=== PATIENT | male | born 1945 | race Two or more races ===

== ENCOUNTER 2024-02-10 22:35 | Emergency (ER) | payer MEDICARE, MEDICAID, SELFPAY ==
[2024-02-10 22:37] VITALS: BMI 19.6
[2024-02-10 23:51] VITALS: BP 129/68; PULSE 63; RESP 16; TEMP 36.7; O2SAT 100
--- NOTE | 2024-02-10 23:55 | PD.EDRME ---
Rapid Medical Screening Exam RME Arrival date/time: 02/10/24 22:35 78-year-old male with past medical historyhypertension, diabetes mellitus type II, GERD, peptic ulcer disease, and Parkinson presents emergency department complaining of left lower quadrant pain that started 4 hours ago. Chief Complaint: Abdominal Pain Vital signs: Vital Signs Temperature 98.1 F 02/10/24 23:51 Pulse Rate 63 02/10/24 23:51 Respiratory Rate 16 02/10/24 23:51 Blood Pressure 129/68 02/10/24 23:51 Pulse Oximetry (%) 100 02/10/24 23:51 Oxygen Delivery Method Room Air 02/10/24 23:51 Vital signs reviewed by provider: Yes
[2024-02-11 00:33] LABS: Basophils # (Auto) 0.1 Thou/mm3 (0.0-0.2); Basophils % (Auto) 1 % (0-2.5); Eosinophils # (Auto) 0.2 Thou/mm3 (0.0-0.5); Eosinophils % (Auto) 2 % (0-10); Hematocrit 30.7 % (41.0-53.0); Hemoglobin 10.3 g/dL (13.5-16.0); Immature Granulocytes % (Auto) 0 % (0-0); Immature Granulocytes Auto 0.02 Thou/mm3 (0.00-0.00); Lymphocytes # (Auto) 1.5 Thou/mm3 (1.0-4.8); Lymphocytes % (Auto) 16 % (10-50); Mean Corpuscular HGB Conc 33.6 g/dl (31.0-37.0); Mean Corpuscular Hemoglobin 29.9 pg (25.0-35.0); Mean Corpuscular Volume 89 fL (80-100); Monocytes # (Auto) 0.5 Thou/mm3 (0.0-0.8); Monocytes % (Auto) 5 % (0-12); Neutrophils % (Auto) 76 % (37-80); Nucleated Red Blood Cell % 0 /100 WBC (0); Platelet Count 306 Thou/mm3 (140-440); RDW Standard Deviation 50.6 fL (35.1-43.9); Red Blood Count 3.45 Miln/mm3 (4.50-5.90); White Blood Count 9.2 Thou/mm3 (3.8-10.6)
[2024-02-11 00:55] LABS: Collection Type, Urine Clean Catch
[2024-02-11 01:11] LABS: Bilirubin,Urine Negative (Negative); Blood,Urine Trace (Negative); Clarity,Urine Clear (Clear/Hazy); Color,Urine Lt-Yellow (Lt Yel-Yel); Culture Indicated,Urine Not Indicated; Glucose, Urine 4+ (Negative); Ketones,Urine Negative (Negative); Leukocyte Esterase,Urine Negative (Negative); Nitrite,Urine Negative (Negative); PH,Urine 5.5 (5.0-7.0); Protein,Urine Trace (Neg - Trace); RBC,Urine 3 /hpf (0-3); Specific Gravity,Urine 1.026 (1.001-1.035); Squamous Epithelial Cell,Urine < 1 /hpf (0-5); Urobilinogen,Urine Negative mg/dL (0.0-1.0); WBC,Urine < 1 /hpf (0-5)
[2024-02-11 01:31] LABS: Alanine Aminotransferase < 7 U/L (10-49); Albumin, Serum 4.4 gm/dL (3.4-4.8); Albumin/Globulin Ratio 1.5 (1.2-2.2); Alkaline Phosphatase 56 U/L (46-116); Anion Gap 5 (7-16); Aspartate Amino Transferase 14 U/L (0-34); BUN/Creatinine Ratio 28 Ratio (12-20); Bilirubin,Total 0.3 mg/dL (0.3-1.2); Blood Urea Nitrogen 33 mg/dL (9-23); Calcium 10.5 mg/dL (8.3-10.6); Calcium (Corrected) 10.5 mg/dL (8.5-10.1); Carbon Dioxide 29.8 mMol/L (20.0-31.0); Chloride 101 mMol/L (98-107); Creatinine (Component) 1.2 mg/dL (0.6-1.3); Estimated Creatinine Clearance 45.7 mL/min (>60); Globulin 2.9 gm/dL (2.3-3.5); Glucose 209 mg/dL (74-106); Lipase 53 U/L (12-53); Osmolality,Calculated 285 (275-295); Potassium 3.8 mMol/L (3.4-5.1); Sodium 136 mMol/L (136-145); Total Protein 7.3 gm/dL (5.7-8.2); eGFR > 60 See Note
[2024-02-11 04:01] VITALS: BP 153/74; PULSE 75; RESP 16; TEMP 36.8; O2SAT 98
--- NOTE | 2024-02-11 04:16 | EDNOTE_ITS ---
ED Abdominal Pain RME/HPI General Chief Complaint: Abdominal Pain Stated complaint: LEFT LOWER ABD/HERNIA PAIN Arrival date/time: 02/10/24 22:35 Source: patient Mode of arrival: ambulatory Limitations: no limitations RME / HPI RME / HPI narrative: 02/10/24 22:35 78-year-old male with past medical history hypertension, diabetes mellitus type II, GERD, peptic ulcer disease, and Parkinson presents emergency department complaining of left lower quadrant pain that started [address] Lafleur?s Main ED Evaluation: 78-year-old male who suffers from chronic constipation and a recurrent left hernia who presents to the emergency department for left inguinal pain, and swelling consistent with his hernia. He currently has diarrhea as he?s been taking the Golytely for his chronic constipation. He denies recent cough. He denies any fevers, chills, or sweats. Related Data Home Medications ?Medication ?Instructions ?Recorded ?Confirmed ferrous sulfate 325 mg (65 mg 325 mg PO BID 01/19/19 12/22/23 iron) tablet carbidopa 25 mg-levodopa 100 mg 1 tab PO TID 01/05/22 12/22/23 tablet cyclobenzaprine 10 mg tablet 10 mg PO BID 01/05/22 12/22/23 gabapentin 100 mg capsule 100 mg PO QDAY 01/05/22 12/22/23 lisinopril 20 mg tablet 20 mg PO QDAY 01/05/22 12/22/23 metformin 1,000 mg tablet 1,000 mg PO BID 01/05/22 12/22/23 metoprolol tartrate 50 mg tablet 50 mg PO BIDWM 01/05/22 12/22/23 sucralfate 1 gram tablet 1 g PO BID 01/05/22 12/22/23 tamsulosin 0.4 mg capsule 0.4 mg PO QDAY 01/05/22 12/22/23 trihexyphenidyl 2 mg tablet 2 mg PO TID 01/05/22 12/22/23 Previous Rx's ?Medication ?Instructions ?Recorded apixaban 2.5 mg tablet (Eliquis) 2.5 mg PO BID #30 tabs 02/11/22 peg 3350-electrolytes 236 240 ml PO Q10M #4,000 mL 06/14/22 gram-22.74 gram-6.74 gram-5.86 gram solution (Golytely) ondansetron 4 mg disintegrating 4 mg PO Q8H PRN nausea and 11/11/23 tablet vomiting #20 tabs pantoprazole 40 mg tablet,delayed 40 mg PO QDAY #14 tabs 11/11/23 release (Protonix) omeprazole 40 mg capsule,delayed 40 mg PO QDAY #90 caps 12/23/23 release Allergies Allergy/AdvReac Type Severity Reaction Status Date / Time No Known Allergies Allergy Verified 02/10/24 22:36 Review of Systems Review of Systems Systems Reviewed: All systems reviewed, normal except as documented Past Medical History Past Medical History NEUROLOGIC: Positive Neurological Disorders and Parkinson's Disease; Negative Seizures or Migraine CARDIAC: Positive Hypertension; Negative Cardiac Disorders or Congestive Heart Failure RESPIRATORY: Negative Chronic Obstructive Pulmonary Disease (COPD), Asthma, Pneumonia, Tuberculosis or Sleep Apnea GASTROINTESTINAL: Positive Gastrointestinal Disorders, Ulcer and Gastroesophageal Reflux Disease GENITOURINARY: Positive Genitourinary Disorders and Benign Prostatic Hyperplasia; Negative Renal Disease MUSCULOSKELETAL: Negative Musculoskeletal Disorders ENT: Positive Cataracts ENDOCRINE: Positive Endocrine Disorders and Diabetes Mellitus Type 2 (unknown meds); Negative Diabetes Mellitus Type 1 HEMATOLOGIC: Negative Blood Disorders or Sickle Cell Disease OTHER HISTORY: Negative Hospitalization, Shingles, Falls, Blood Transfusions, Blood Transfusion Reaction, Anesthesia Reactions, Chemotherapy, Radiation Therapy or Cancer Family History FAMILY HISTORY: Positive Family Cancer; Negative Family Anesthesia Reaction Surgical History SURGICAL: Negative Cardiac Surgery Social History SMOKING STATUS: Never smoker SUBSTANCE USE: does not use ED Exam Narrative Physical exam: GENERAL APPEARANCE: AxOx4, generally well-appearing, no acute distress. HEENT: NC, AT. MMM. EOMI, clear conjunctiva, oropharynx clear. NECK: Supple without lymphadenopathy. No stiffness or restricted ROM. HEART: Normal rate and regular rhythm, normal S1/S1, no m/r/g LUNGS: CTAB, moving air well. No crackles or wheezes are heard. ABDOMEN: Soft, nontender, nondistended with good bowel sounds heard. He has a 3 x 3 cm left in a hernia that was reduced at bedside by me without, difficulty. No erythema or signs of strangulation. BACK: No midline C/T/L spine pain or deformity, No CVAT, no obvious deformity. EXTREMITIES: Without cyanosis, clubbing or edema. MUSCULOSKELETAL: FROM of all major joints, no chest tenderness NEUROLOGICAL: Grossly nonfocal. Alert and oriented, moving all 4 extremities. CN not formally tested but appear grossly intact. Observed to ambulate with normal gait. Skin: Warm and dry without any rash. General Limitations: Present no limitations Course Quality Measures none Orders Category Date Time Status CBC Stat Lab 02/10/24 23:59 Completed CMP [Comprehensive Metabolic Panel] Stat Lab 02/10/24 23:59 Completed Lipase Stat Lab 02/10/24 23:59 Completed Urinalysis, C/S if Indicated Stat Lab 02/11/24 00:27 Completed Vital Signs Vital signs: Vital Signs Temperature 98.1 F 02/10/24 23:51 Pulse Rate 63 02/10/24 23:51 Respiratory Rate 16 02/10/24 23:51 Blood Pressure 129/68 02/10/24 23:51 Pulse Oximetry (%) 100 02/10/24 23:51 Oxygen Delivery Method Room Air 02/10/24 23:51 Abdominal Pain MDM MDM Narrative MDM Narrative:: Mr. Do presents with an uncomplicated reducible left inguinal hernia. We will have him follow-up with his primary care clinic which does have general surgery. Scribe Attestation: I, Jennyfer Matthews, am scribing for and in the presence of Dr. Lafleur. Provider Notation: Although this document has been carefully reviewed, there may still be some phonetic and other typographical errors. These errors are purely grammatical due to imperfections in the software program and should not be construed in any way to compromise the substance of the patient's medical care during this visit. Patient data External records reviewed:: [facility] previous records Clinical information provided by:: patient Social determinants that could affect healthcare access:: none Patient has the following chronic illnesses:: HTN, DM2, GERD, peptic ulcer disease, Parkinson's How is presenting disease/condition affected by chronic disease/condition?: uneffected by Evaluation data The following diagnostics were reviewed and interpreted by me:: lab results Lab and/or radiology exams considered but not ordered:: None Interpretation Summary: See narrative Medications / Prescriptions Medications or Prescriptions considered but not ordered:: None Medication administrations:: As above, if any Consultations Consultation(s) initiated? (list below): No Diagnosis Differential diagnosis abdominal pain: abdominal pain, constipation, diverticulitis, gastroenteritis and small bowel obstruction Most likely diagnosis given after review of the tests above:: Inguinal hernia Admission Indicated Admission indicated?: not indicated Admission Request Was there a request for admission?: No Disposition Plan Disposition Plan: Discharge Discharge Attestation Discharge Attestation: The patient and all family members were given an opportunity to ask questions and understood the discharge instructions. Discharge instructions specifically effects, indications for sooner follow up or return to the emergency department, and the expected course of current diagnosis. Patient condition: Stable Discharge Plan Plan Patient Disposition: HOME (Self Care) Prescriptions/Referrals Prescriptions/Med Rec: No Action ferrous sulfate 325 mg (65 mg iron) tablet 325 mg PO BID Patient Comments: take 1 tablet by mouth once daily peg 3350-electrolytes [Golytely] 236-22.74-6.74 -5.86 gram recon soln 240 ml PO Q10M Qty: 4000 0RF Rx Instructions: until fecal effluent is clear cyclobenzaprine 10 mg tablet 10 mg PO BID metformin 1,000 mg tablet 1,000 mg PO BID tamsulosin 0.4 mg capsule 0.4 mg PO QDAY Patient Comments: take 1 capsule by mouth once daily gabapentin 100 mg capsule 100 mg PO QDAY Patient Comments: take 1 capsule by mouth once daily trihexyphenidyl 2 mg tablet 2 mg PO TID Patient Comments: take 1 tablet by mouth three times a day lisinopril 20 mg tablet 20 mg PO QDAY Patient Comments: take 1 tablet by mouth once daily metoprolol tartrate 50 mg tablet 50 mg PO BIDWM Patient Comments: take 1 tablet by mouth twice a day with food carbidopa-levodopa 25-100 mg tablet 1 tab PO TID Patient Comments: take 1 and 1/2 tablet by mouth four times a day sucralfate 1 gram tablet 1 g PO BID Eliquis 2.5 mg Tablet 2.5 mg PO BID Qty: 30 0RF ondansetron 4 mg tablet,disintegrating 4 mg PO Q8H PRN (Reason: nausea and vomiting) Qty: 20 0RF pantoprazole [Protonix] 40 mg tablet,delayed release (DR/EC) 40 mg PO QDAY Qty: 14 0RF omeprazole 40 mg capsule,delayed release(DR/EC) 40 mg PO QDAY Qty: 90 0RF Referrals: Lee De La Cruz MD [Primary Care Provider] - In 1 week Problem List Clinical Impression: Inguinal hernia Patient/Caregiver Discharge Instructions Education Materials: ED Hernia (Adult) Additional Instructions: Marie un seguimiento con diallo cl?fabio de atenci?n m?dica familiar wade jueves para eddie al cirujano para un mayor tratamiento de diallo hernia. No dude en regresar al departamento de emergencias antes si los s?ntomas empeoran o si nota alg?n problema nuevo o preocupante. Print Language: Colombian Stand Alone Forms: Paula Award Info., Patient Portal Info Letter
== END 2024-02-11 04:22 | disposition home or self-care (01) ==
PROVIDERS: Emergency Provider Emergency Medicine; PCP Family Medicine
DX: K40.90 Unilateral inguinal hernia, without obstruction or gangrene, not specified as recurrent (principal)
CPT/HCPCS: 36415; 80053; 81001; 83690; 85025; 99283

== ENCOUNTER 2024-03-06 07:25 | Day surgery (SDC) | payer MEDICARE, MEDICAID, SELFPAY ==
--- NOTE | 2024-03-05 06:00 | EKG_ITS ---
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
[2024-03-05 10:53] VITALS: BMI 19.2
[2024-03-05 12:29] LABS: Basophils % (Auto) 1 % (0-2.5); Eosinophils # (Auto) 0.4 Thou/mm3 (0.0-0.5); Eosinophils % (Auto) 6 % (0-10); Hemoglobin 9.7 g/dL (13.5-16.0); Immature Granulocytes % (Auto) 0 % (0-0); Immature Granulocytes Auto 0.01 Thou/mm3 (0.00-0.00); Lymphocytes # (Auto) 1.3 Thou/mm3 (1.0-4.8); Lymphocytes % (Auto) 22 % (10-50); Mean Corpuscular HGB Conc 33.4 g/dl (31.0-37.0); Mean Corpuscular Hemoglobin 29.6 pg (25.0-35.0); Mean Corpuscular Volume 88 fL (80-100); Monocytes # (Auto) 0.5 Thou/mm3 (0.0-0.8); Monocytes % (Auto) 8 % (0-12); Neutrophils # (Auto) 3.7 Thou/mm3 (1.8-7.7); Neutrophils % (Auto) 63 % (37-80); Nucleated Red Blood Cell % 0 /100 WBC (0); Platelet Count 263 Thou/mm3 (140-440); RDW Standard Deviation 47.8 fL (35.1-43.9); Red Blood Count 3.28 Miln/mm3 (4.50-5.90); White Blood Count 5.9 Thou/mm3 (3.8-10.6)
[2024-03-05 12:38] LABS: Partial Thromboplastin Time 25.9 Seconds (22.0-36.0); Prothrombin Time 11.3 Seconds (9.0-12.2)
[2024-03-05 12:54] LABS: Alanine Aminotransferase < 7 U/L (10-49); Albumin, Serum 4.4 gm/dL (3.4-4.8); Albumin/Globulin Ratio 1.6 (1.2-2.2); Alkaline Phosphatase 67 U/L (46-116); Anion Gap 8 (7-16); Aspartate Amino Transferase 18 U/L (0-34); BUN/Creatinine Ratio 26 Ratio (12-20); Bilirubin,Total 0.4 mg/dL (0.3-1.2); Blood Urea Nitrogen 37 mg/dL (9-23); Calcium 10.1 mg/dL (8.3-10.6); Calcium (Corrected) 10.1 mg/dL (8.5-10.1); Carbon Dioxide 29.6 mMol/L (20.0-31.0); Chloride 99 mMol/L (98-107); Creatinine (Component) 1.4 mg/dL (0.6-1.3); Estimated Creatinine Clearance 38.3 mL/min (>60); Globulin 2.8 gm/dL (2.3-3.5); Glucose 168 mg/dL (74-106); Osmolality,Calculated 286 (275-295); Potassium 3.9 mMol/L (3.4-5.1); Sodium 137 mMol/L (136-145); Total Protein 7.2 gm/dL (5.7-8.2); eGFR 51 See Note
--- NOTE | 2024-03-05 16:10 | SUR.PREOP ---
Cardiac records reviewed with Dr Pratt.
[2024-03-06] VITALS (9 sets, daily range): BP systolic 109–129; BP diastolic 52–75; PULSE 72–84; RESP 12–20; TEMP 36.2–37.2; O2SAT 96–100; BMI 19.1
[2024-03-06] MEDS: RINGERS LACTATED 1000 ML 1,000 ML 20 ML IV (08:37)
--- NOTE | 2024-03-06 08:41 | CHAP ---
Patient expressed gratitude for prayer before their procedure.
--- NOTE | 2024-03-06 12:23 | SUR.PHASEI ---
1223: Pt. arrived with oral airway in place, vitals stable, breathing unlabored, no signs of distress, dressing to left lower ABD CDI, no active bleed noted, report received from Lela GUO and MD Spears.
--- NOTE | 2024-03-06 12:48 | PD.SUROPNT ---
Date of Procedure 03/06/24 Pre Op Diagnosis Symptomatic left inguinal hernia Post Op Diagnosis Same Procedure Repair of the left inguinal hernia, direct in type Findings Patient is found to have a no sac and the cord structures and there was weakness in the transversalis fascia which was bulging out as a direct hernia Procedure Description After the patient was brought to the operating room endotracheal anesthesia was given. Abdomen was prepped with ChloraPrep solution draped in a sterile manner in the lower portion. Timeout was performed. Then I made an incision about 6 cm in length over the left groin after injecting half percent Marcaine. External oblique was incised and cord structures were encircled. There is no sac and the cord structures but there was a bulging in the portion of the inguinal floor which manifested as direct inguinal hernia. The defect admitted little more than 1 finger. I excised the redundant transversalis fascia and then I suture the edges of the transverse fascia using 2-0 Prolene. Then I placed 2 x 4 Marlex mesh on the floor and attach this medially to the fascia close to the pubic tubercle. It was then circled around the cord structures and tucked underneath the external oblique. I placed 1 stitch lateral to the cord with a 2-0 Prolene. Then external oblique was closed with a running 2-0 Vicryl. Spencer's fascia was closed with running 3-0 plain. 4-0 Monocryl was used to close the wound with subcuticular approximation. Dressing was applied with Adaptic and 4 x 4 gauze and patient tolerated the procedure well and left operating room in stable condition Anesthesia GETA Implants 2 x 4 Marlex mesh on the floor of the inguinal canal Pathology / specimen None IVF Infused 800 Estimated Blood Loss 20 Surgeon Shani Olivarez MD Surgical Staff Operation Date: 03/06/24 10:15 Case Staff Anesthesiologist: Gary Spears RN First Assistant: Rose Avery
[2024-03-06] MEDS: fentaNYL CIT INJ 50 mCg/ML AMP 2ML 25 MCG IVP (13:16)
--- NOTE | 2024-03-06 13:40 | SUR.PHASEII ---
1340: Pt. AAOx4, vitals stable, breathing unlabored, no complaint of pain or nausea, dressing to lower left ABD CDI, no active bleed noted, pt. tolerated sips of juice well, pt. ambulated to wheelchair with steady gait and no assist, no complications. Gave discharge instructions to the pt. and his ride using manager nursing home, both verbalized understanding and had no further questions. Pt. left with all personal belongings.
== END 2024-03-06 13:40 | disposition home or self-care (01) ==
PROVIDERS: PCP Family Medicine; Referring Provider Surgery; Visit Provider Surgery
PROC: (CPT 49505; principal; 2024-03-06 10:00)
DX: K40.90 Unilateral inguinal hernia, without obstruction or gangrene, not specified as recurrent (principal); Z01.810 Encounter for preprocedural cardiovascular examination
CPT/HCPCS: 49505; 36415; 80053; 85025; 85610; 85730; 93005; A4217; A4649; C1781; J0461; J2250; J2371; J2405; J2704; J2765; J3010; J3490; J7120

== ENCOUNTER 2024-04-27 11:24 | Emergency (ER) | payer MEDICARE, MEDICAID, SELFPAY ==
[2024-04-27 11:25] VITALS: BMI 23.2
[2024-04-27 11:46] VITALS: BP 123/74; PULSE 76; RESP 19; TEMP 36.4; O2SAT 100
--- NOTE | 2024-04-27 11:53 | XR_ITS ---
Examination: CT cervical spine without contrast 2-D sagittal reconstructions 2-D coronal reconstructions 3-D reconstructions. Exam date and time:April 27, 2024 at 1212 hours INDICATIONS: Recurrent falls this week with injury to the neck, neck pain COMPARISON: September 07, 2015 CTDI:vol (mGy) 7.79 DLP: (mGycm) 174 Technique: Multiple 2 mm axial sections of the cervical spine have been obtained. The coronal and sagittal reconstructions have been obtained. 3-D reconstructions have been obtained. Low dose protocols were performed. One or more of the following dose reduction techniques were used; automated exposure control, adjustment of the mA and/or KV according to patient size, use of iterative reconstruction technique. Findings: Axial sections demonstrate intact base of the skull. C1 exhibit satisfactory relationship to the odontoid. No acute cervical vertebral body fracture seen. Alignment posterior spinous processes satisfactory. Impression: No acute cervical fracture.
--- NOTE | 2024-04-27 11:53 | XR_ITS ---
Examination: CT brain head without contrast. 2-D sagittal coronal reconstructions Date and time of exam:April 27, 2024 at 1212 hours INDICATIONS: Frequent falls this week with injury to the head, head pain CTDI: vol (mGy):50.4 DLP: (mGycm):974 Technique: Multiple CT axial sections of the brain have been obtained, 5 mm slice thickness. Contrast has not been administered. 2-D sagittal, coronal reconstructions have been obtained Low dose protocols were performed. One or more of the following dose reduction techniques were used; automated exposure control, adjustment of the mA and/or KV according to patient size, use of iterative reconstruction technique. Findings: No significant ventricular enlargement. Intra-axial or extra-axial hemorrhage density is not seen. No mass effect or midline shift Basal cisterns are not remarkable. Fourth ventricle is midline. Cranial vault intact. Impression: Negative for acute hemorrhage, mass effect or midline shift
--- NOTE | 2024-04-27 11:56 | EDNOTE_ITS ---
ED General RME/HPI General Chief complaint: Fall Stated complaint: MULTIPLE FALLS X 5 DAYS Time Seen by Provider: 04/27/24 11:41 Arrival date/time: 04/27/24 11:24 CC: Recurrent falls HPI reports the patient has had multiple falls in the past 4 to 5 days, which is not typical for him. states that he loses his balance but does not have syncopal events. Patient is awake alert with no specific complaints. Review the medical record show the patient was here for fall in 2020 developed FORREST and was admitted for an ORIF of the right hip. Related Data Home Medications ?Medication ?Instructions ?Recorded ?Confirmed carbidopa 25 mg-levodopa 100 mg 1 tab PO TID 01/05/22 03/06/24 tablet lisinopril 20 mg tablet 20 mg PO QDAY 01/05/22 03/06/24 metformin 1,000 mg tablet 1,000 mg PO BID 01/05/22 03/06/24 sucralfate 1 gram tablet 1 g PO BID 01/05/22 03/06/24 tamsulosin 0.4 mg capsule 0.4 mg PO QDAY 01/05/22 03/06/24 trihexyphenidyl 2 mg tablet 2 mg PO TID 01/05/22 03/06/24 carbidopa ER 48.75 mg-levodopa 195 1 cap PO TID 03/05/24 03/06/24 mg capsule,extended release (Rytary) glipizide 10 mg tablet 10 mg PO BID 03/05/24 03/06/24 hydrochlorothiazide 12.5 mg tablet 12.5 mg PO QDAY 03/05/24 03/06/24 rasagiline 1 mg tablet 1 mg PO QDAY 03/05/24 03/06/24 Previous Rx's ?Medication ?Instructions ?Recorded pantoprazole 40 mg tablet,delayed 40 mg PO QDAY #14 tabs 11/11/23 release (Protonix) Allergies Allergy/AdvReac Type Severity Reaction Status Date / Time No Known Allergies Allergy Verified 03/06/24 08:27 Review of Systems Review of Systems Narrative Review of Systems: GEN: No fever, no chills, no weight loss EYES: No discharge, no visual changes, no pain HEENT: No ear pain, no congestion, no sore throat PULM: No shortness of breath, no cough, no congestion CV: No chest pain, no dyspnea on exertion, no palpitations GI: No nausea, no vomiting, no diarrhea, no pain, no constipation : No frequency, no urgency, no dysuria MUSC/SKEL: No joint pain, no back pain SKIN: No rash PSYCH: No hallucinations, no depression HEME/LYMPH: No easy bleeding or bruising tendencies NEURO: No weakness, no headache ED Exam Narrative Physical exam: [General: Frail, deconditioned, but not in any acute distress Head normocephalic HEENT: Eyes: Pupils are PERRLA EOMs are intact. All other subsystems of HEENT are within acceptable limits Neck is supple nontender no JVD no edema Chest equal chest rise nontender to palpation Respiratory: Clear to auscultation no wheezes crackles or rubs CV: Rate rhythm is regular no murmurs rubs or clicks Abdomen is soft nontender no masses positive bowel sounds all 4 quadrants Back: No CVA tenderness no spinous process tenderness from cervical spine thoracic and lumbar spine Skin: Intact no petechiae rash induration ulceration or crepitus Extremities: Moving all extremity against resistance cap refill less than 2 seconds neurosensory intact Neuro: Awake alert oriented x3 Glascow coma 15 no focal deficits] Course Quality Measures none Orders Category Date Time Status EKG (ED ONLY) *Do not use* NOW Care 04/27/24 11:53 Completed Saline [Insert IV] STAT Care 04/27/24 13:[address] cervical spine wo con Stat Exams 04/27/24 11:[address] head/brain wo con Stat Exams 04/27/24 11:53 Completed EKG (ED Only) Stat Exams 04/27/24 11:53 Ordered B-Type Natriuretic Peptide Stat Lab 04/27/24 12:25 Completed CBC Stat Lab 04/27/24 12:25 Completed CMP [Comprehensive Metabolic Panel] Stat Lab 04/27/24 19:20 Completed Comprehensive Metabolic Panel Stat Lab 04/27/24 12:25 Completed Drug Screen,Urine Stat Lab 04/27/24 18:10 Completed LDH (Lactate Dehydrogenase) Stat Lab 04/27/24 12:25 Completed Mag [Magnesium] Stat Lab 04/27/24 20:39 Ordered Magnesium Stat Lab 04/27/24 12:25 Completed Partial Thromboplastin Time Stat Lab 04/27/24 12:25 Completed Prothrombin Time with INR Stat Lab 04/27/24 12:25 Completed Troponin I Stat Lab 04/27/24 12:25 Completed Urinalysis Stat Lab 04/27/24 18:10 Completed Magnesium Sulfate 4 GM Ivpb [Magnesium Sulfate Ivpb] Med 04/27/24 13:34 Discontinued 4 gm in 50 ml IV X1 Sodium Chloride 0.9% 1000 ml [Ns] 1,000 ml Med 04/27/24 13:34 Discontinued IV 999 mls/hr Vital Signs Vital signs: Vital Signs Temperature 97.5 F 04/27/24 11:46 Pulse Rate 76 04/27/24 11:46 Respiratory Rate 19 04/27/24 11:46 Blood Pressure 123/74 04/27/24 11:46 Pulse Oximetry (%) 100 04/27/24 11:46 Oxygen Delivery Method Room Air 04/27/24 11:46 [facility] Patient data External records reviewed:: [facility] previous records Clinical information provided by:: patient Social determinants that could affect healthcare access:: none Patient has the following chronic illnesses:: Dementia diabetes hypertension How is presenting disease/condition affected by chronic disease/condition?: u neffected by Evaluation data The following diagnostics were reviewed and interpreted by me:: lab results, radiology exam(s) and EKG tracing(s) Lab and/or radiology exams considered but not ordered:: EKG performed at 1151 shows a ventricular rate of 75 CO interval 197 QRS of 81 QTc of 407 this is sinus rhythm. CBC shows no leukocytosis anemia of 9.6 and 28.55 respectively no thrombocytopenia Coags within acceptable limits CMP shows BUN of 28 creatinine of 1 no other electrolyte imbalances renal impairment after IV fluids the patient's BUN decreased to 24. Lactate hydrates of 326 Urine is negative for UTI CT head and C-spine is interpreted by me read by radiology as negative for any acute finding. Interpretation Summary: Patient had recurrent falls is awake alert and has no falls CT of the head is negative. Patient is frail however has no acute finding requires admission. This time patient will be discharged home with dehydration and recurrent falls Medications Medications considered but not ordered:: None Medication administrations:: Medication Administration History Discontinued Medications Sodium Chloride (Ns) 1,000 mls @ 999 mls/hr IV .Q1H1M ONE Stop: 04/27/24 14:34 Last Infusion: 04/27/24 17:15 Dose: Infused Documented By: Admin: 04/27/24 16:13 Dose: 999 mls/hr Documented By: COLBY Magnesium Sulfate (Magnesium Sulfate Ivpb) 4 gm in 50 mls @ 12.5 mls/hr IV X1 ONE Stop: 04/27/24 17:33 Last Infusion: 04/27/24 20:00 Dose: Infused Documented By: Admin: 04/27/24 16:12 Dose: 12.5 mls/hr Documented By: COLBY None Consultations Consultation(s) initiated? (list below): No Diagnosis Differential Diagnosis ED Complaint MDM: Dehydration recurrent falls closed head injury Most likely diagnosis given after review of the tests above:: Dehydration recurrent falls Admission Indicated Admission indicated?: not indicated Explain why admission is indicated or not indicated:: Stable for outpatient follow-up Admission Request Was there a request for admission?: No Disposition Plan Disposition Plan: Discharge Discharge Attestation Discharge Attestation: The patient and all family members were given an opportunity to ask questions and understood the discharge instructions. Discharge instructions specifically effects, indications for sooner follow up or return to the emergency department, and the expected course of current diagnosis. Patient condition: Stable Medical Decision Making Differential Diagnosis Differential Diagnosis: Dehydration recurrent falls closed head injury Lab Data 04/27/24 12:25 04/27/24 19:20 Labs: Lab Results 04/27/24 04/27/24 04/27/24 Range/Units 12:25 18:10 19:20 WBC 7.2 (3.8-10.6) Thou/mm3 RBC 3.35 L (4.50-5.90) Miln/mm3 Hgb 9.6 L (13.5-16.0) g/dL Hct 28.5 L (41.0-53.0) % MCV 85 (80-100) fL MCH 28.7 (25.0-35.0) pg MCHC 33.7 (31.0-37.0) g/dl RDW Std Deviation 42.5 (35.1-43.9) fL Plt Count 302 (140-440) Thou/mm3 Neut % (Auto) 69 (37-80) % Lymph % (Auto) 18 (10-50) % [place] % (Auto) 8 (0-12) % Eos % (Auto) 4 (0-10) % Baso % (Auto) 1 (0-2.5) % Neut # (Auto) 5.0 (1.8-7.7) Thou/mm3 Lymph # (Auto) 1.3 (1.0-4.8) Thou/mm3 [place] # (Auto) 0.6 (0.0-0.8) Thou/mm3 Eos # (Auto) 0.3 (0.0-0.5) Thou/mm3 Baso # (Auto) 0.0 (0.0-0.2) Thou/mm3 Immature Gran # (Auto) 0.01 H (0.00-0.00) Thou/mm3 Absolute Nucleated RBC 0.00 (0.00-0.00) Thou/mm3 Immature Gran % 0 (0-0) % Nucleated RBC % 0 (0) /100 WBC PT 11.3 (9.0-12.2) Seconds INR 1.0 (0.9-1.3) APTT 26.5 (22.0-36.0) Seconds Sodium 137 137 (136-145) mMol/L Potassium 3.6 3.8 (3.4-5.1) mMol/L Chloride 100 101 (98-107) mMol/L Carbon Dioxide 29.5 27.6 (20.0-31.0) mMol/L Anion Gap 8 8 (7-16) BUN 34 H 24 H (9-23) mg/dL Creatinine 1.2 1.0 (0.6-1.3) mg/dL Estim Creat Clear Calc 44.3 L 53.2 L (>60) mL/min eGFR > 60 > 60 (60 - ) See Note BUN/Creatinine Ratio 28 H 24 H (12-20) Ratio Glucose 171 H 124 H (74-106) mg/dL Calculated Osmolality 285 278 (275-295) Calcium 9.7 10.2 (8.3-10.6) mg/dL Corrected Calcium 9.7 10.2 H (8.5-10.1) mg/dL Magnesium 1.3 L (1.6-2.6) mg/dL Total Bilirubin 0.5 0.6 (0.3-1.2) mg/dL AST 42 H 43 H (0-34) U/L ALT < 7 L < 7 L (10-49) U/L Alkaline Phosphatase 96 100 (46-116) U/L Lactate Dehydrogenase 326 H (120-246) U/L Troponin I 0.043 (0.0-0.045) ng/mL B-Natriuretic Peptide < 20 (0-100) pg/mL Total Protein 7.2 7.2 (5.7-8.2) gm/dL Albumin 4.2 4.2 (3.4-4.8) gm/dL Globulin 3.0 3.0 (2.3-3.5) gm/dL Albumin/Globulin Ratio 1.4 1.4 (1.2-2.2) Ur Collection Type Clean Catch Urine Color Colorless A (Lt Yel-Yel) Urine Clarity Clear (Clear/Hazy) Urine pH 7.5 H (5.0-7.0) Ur Specific [place] 1.012 (1.001-1.035) Urine Protein Negative (Neg - Trace) Urine Glucose (UA) Negative (Negative) Urine Ketones Negative (Negative) Urine Blood Negative (Negative) Urine Nitrite Negative (Negative) Urine Bilirubin Negative (Negative) Urine Urobilinogen (Auto) Negative (0.0-1.0) mg/dL Ur Leukocyte Esterase Negative (Negative) Urine RBC 1 (0-3) /hpf Urine WBC < 1 (0-5) /hpf Ur Squamous Epith Cells 0 (0-5) /hpf Urine Bacteria None (None) Urine Opiates Screen Negative (Negative) Urine Fentanyl Screen Negative (Negative) Ur Barbiturates Screen Negative (Negative) U Amphetamin/Meth Scrn Negative (Negative) U Benzodiazepines Scrn Negative (Negative) U Cocaine Metab Screen Negative (Negative) U Marijuana (THC) Screen Negative (Negative) Discharge Plan Plan Patient Disposition: HOME (Self Care) Patient condition on transfer: Stable Prescriptions/Referrals Prescriptions/Med Rec: No Action metformin 1,000 mg tablet 1,000 mg PO BID tamsulosin 0.4 mg capsule 0.4 mg PO QDAY Patient Comments: take 1 capsule by mouth once daily trihexyphenidyl 2 mg tablet 2 mg PO TID Patient Comments: take 1 tablet by mouth three times a day lisinopril 20 mg tablet 20 mg PO QDAY Patient Comments: take 1 tablet by mouth once daily carbidopa-levodopa 25-100 mg tablet 1 tab PO TID Patient Comments: take 1 and 1/2 tablet by mouth four times a day sucralfate 1 gram tablet 1 g PO BID pantoprazole [Protonix] 40 mg tablet,delayed release (DR/EC) 40 mg PO QDAY Qty: 14 0RF glipizide 10 mg Tablet 10 mg PO BID rasagiline 1 mg Tablet 1 mg PO QDAY hydrochlorothiazide 12.5 mg Tablet 12.5 mg PO QDAY Rytary 48.75-195 mg Capsule, Extended Release 1 cap PO TID Rx Instructions: divide evenly over waking hours Referrals: Lee De La Cruz MD [Primary Care Provider] - In 1 week Problem List Clinical Impression: Recurrent falls, Dehydration Patient/Caregiver Discharge Instructions Education Materials: ED Fall with Uncertain Cause Additional Instructions: Rest drink plenty of fluids consider home health assessment for home health care in the future secondary to the patient's deconditioning. Print Language: Telugu Stand Alone Forms: Paula Award Info., Patient Portal Info Letter PA/HVAC PROJECT ENGINEER Supervising Physician PA/HVAC PROJECT ENGINEER Supervising Physician: Harry Kaur ENP
[2024-04-27 12:39] LABS: Basophils % (Auto) 1 % (0-2.5); Eosinophils # (Auto) 0.3 Thou/mm3 (0.0-0.5); Eosinophils % (Auto) 4 % (0-10); Hematocrit 28.5 % (41.0-53.0); Hemoglobin 9.6 g/dL (13.5-16.0); Immature Granulocytes % (Auto) 0 % (0-0); Immature Granulocytes Auto 0.01 Thou/mm3 (0.00-0.00); Lymphocytes # (Auto) 1.3 Thou/mm3 (1.0-4.8); Lymphocytes % (Auto) 18 % (10-50); Mean Corpuscular HGB Conc 33.7 g/dl (31.0-37.0); Mean Corpuscular Hemoglobin 28.7 pg (25.0-35.0); Mean Corpuscular Volume 85 fL (80-100); Monocytes # (Auto) 0.6 Thou/mm3 (0.0-0.8); Monocytes % (Auto) 8 % (0-12); Neutrophils % (Auto) 69 % (37-80); Nucleated Red Blood Cell % 0 /100 WBC (0); Platelet Count 302 Thou/mm3 (140-440); RDW Standard Deviation 42.5 fL (35.1-43.9); Red Blood Count 3.35 Miln/mm3 (4.50-5.90); White Blood Count 7.2 Thou/mm3 (3.8-10.6)
[2024-04-27 12:57] LABS: Partial Thromboplastin Time 26.5 Seconds (22.0-36.0); Prothrombin Time 11.3 Seconds (9.0-12.2)
[2024-04-27 13:03] LABS: B-Type Natriuretic Peptide < 20 pg/mL (0-100)
[2024-04-27 13:15] LABS: Alanine Aminotransferase < 7 U/L (10-49); Albumin, Serum 4.2 gm/dL (3.4-4.8); Albumin/Globulin Ratio 1.4 (1.2-2.2); Alkaline Phosphatase 96 U/L (46-116); Anion Gap 8 (7-16); Aspartate Amino Transferase 42 U/L (0-34); BUN/Creatinine Ratio 28 Ratio (12-20); Bilirubin,Total 0.5 mg/dL (0.3-1.2); Blood Urea Nitrogen 34 mg/dL (9-23); Calcium 9.7 mg/dL (8.3-10.6); Calcium (Corrected) 9.7 mg/dL (8.5-10.1); Carbon Dioxide 29.5 mMol/L (20.0-31.0); Chloride 100 mMol/L (98-107); Creatinine (Component) 1.2 mg/dL (0.6-1.3); Estimated Creatinine Clearance 44.3 mL/min (>60); Glucose 171 mg/dL (74-106); LDH (Lactate Dehydrogenase) 326 U/L (120-246); Magnesium 1.3 mg/dL (1.6-2.6); Osmolality,Calculated 285 (275-295); Potassium 3.6 mMol/L (3.4-5.1); Sodium 137 mMol/L (136-145); Total Protein 7.2 gm/dL (5.7-8.2); Troponin I 0.043 ng/mL (0.0-0.045); eGFR > 60 See Note
[2024-04-27 16:05] VITALS: BP 145/72; PULSE 72; RESP 21; O2SAT 100
[2024-04-27] MEDS: Magnesium Sulfate 4 GM Ivpb 4 GM/50 ML BAG IV (16:12)
[2024-04-27] MEDS: SODIUM CHLORIDE 0.9% 1000 ML 1,000 ML 999 ML IV (16:13)
[2024-04-27 17:04] VITALS: BP 145/72; PULSE 72; RESP 17; TEMP 36.8; O2SAT 99
[2024-04-27 18:14] VITALS: BP 149/75; PULSE 70; RESP 15; TEMP 36.3; O2SAT 98
[2024-04-27 19:04] LABS: Collection Type, Urine Clean Catch; Squamous Epithelial Cell,Urine 0 /hpf (0-5)
[2024-04-27 19:17] LABS: Bilirubin,Urine Negative (Negative); Blood,Urine Negative (Negative); Clarity,Urine Clear (Clear/Hazy); Color,Urine Colorless (Lt Yel-Yel); Glucose, Urine Negative (Negative); Ketones,Urine Negative (Negative); Leukocyte Esterase,Urine Negative (Negative); Nitrite,Urine Negative (Negative); PH,Urine 7.5 (5.0-7.0); Protein,Urine Negative (Neg - Trace); RBC,Urine 1 /hpf (0-3); Specific Gravity,Urine 1.012 (1.001-1.035); Urobilinogen,Urine Negative mg/dL (0.0-1.0); WBC,Urine < 1 /hpf (0-5)
[2024-04-27 19:26] LABS: Amphetamine/Methamp Scrn,U Negative (Negative); Barbiturate Screen,Urine Negative (Negative); Benzodiazepines Screen,Urine Negative (Negative); Benzoylecgonine Screen, Ur Negative (Negative); Fentanyl Screen,Urine Negative (Negative); Opiate Screen,Urine Negative (Negative); THC Screen,Urine Negative (Negative)
[2024-04-27 20:09] LABS: Alanine Aminotransferase < 7 U/L (10-49); Albumin, Serum 4.2 gm/dL (3.4-4.8); Albumin/Globulin Ratio 1.4 (1.2-2.2); Alkaline Phosphatase 100 U/L (46-116); Anion Gap 8 (7-16); Aspartate Amino Transferase 43 U/L (0-34); BUN/Creatinine Ratio 24 Ratio (12-20); Bilirubin,Total 0.6 mg/dL (0.3-1.2); Blood Urea Nitrogen 24 mg/dL (9-23); Calcium 10.2 mg/dL (8.3-10.6); Calcium (Corrected) 10.2 mg/dL (8.5-10.1); Carbon Dioxide 27.6 mMol/L (20.0-31.0); Chloride 101 mMol/L (98-107); Estimated Creatinine Clearance 53.2 mL/min (>60); Glucose 124 mg/dL (74-106); Osmolality,Calculated 278 (275-295); Potassium 3.8 mMol/L (3.4-5.1); Sodium 137 mMol/L (136-145); Total Protein 7.2 gm/dL (5.7-8.2); eGFR > 60 See Note
== END 2024-04-27 22:36 | disposition home or self-care (01) ==
PROVIDERS: Registered Nurse General Practice; Emergency Provider Emergency Medicine; PCP Family Medicine
DX: E86.0 Dehydration (principal); S19.9XXA Unspecified injury of neck, initial encounter; S09.90XA Unspecified injury of head, initial encounter; R29.6 Repeated falls; R54 Age-related physical debility; R94.31 Abnormal electrocardiogram [ECG] [EKG]; I10 Essential (primary) hypertension; W19.XXXA Unspecified fall, initial encounter
CPT/HCPCS: 36415; 70450; 72125; 80053; 80307; 81001; 83615; 83735; 83880; 84484; 85025; 85610; 85730; 93005; 96365; 96366; 99284; J3475; J7030

== ENCOUNTER 2024-05-15 12:11 | Emergency (ER) | payer MEDICARE, MEDICAID, SELFPAY ==
[2024-05-15] VITALS (8 sets, daily range): BP systolic 134–161; BP diastolic 63–93; PULSE 70–96; RESP 13–20; TEMP 36.1–36.7; O2SAT 94–99; BMI 20.3
--- NOTE | 2024-05-15 12:24 | EKG_ITS ---
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
--- NOTE | 2024-05-15 12:24 | XR_ITS ---
Examination: AP chest single view Technique one AP portable upright chest single view Exam date and time: May 15, 2024 1321 hours Comparison June 14, 2022 INDICATIONS: Sepsis today. FINDINGS: Suspicious for early left base pneumonia Right lung clear Normal heart size IMPRESSION: Suspicious for early left base pneumonia
[2024-05-15] MEDS: SODIUM CHLORIDE 0.9% 1000 ML 1,000 ML 999 ML IV (13:08)
[2024-05-15 13:25] LABS: Lactate (Lactic Acid) 1.1 mMol/L (0.4-2.0)
[2024-05-15 13:31] LABS: Basophils % (Auto) 1 % (0-2.5); Eosinophils # (Auto) 0.2 Thou/mm3 (0.0-0.5); Eosinophils % (Auto) 4 % (0-10); Hematocrit 26.3 % (41.0-53.0); Immature Granulocytes % (Auto) 0 % (0-0); Immature Granulocytes Auto 0.02 Thou/mm3 (0.00-0.00); Lymphocytes # (Auto) 1.2 Thou/mm3 (1.0-4.8); Lymphocytes % (Auto) 19 % (10-50); Mean Corpuscular HGB Conc 33.5 g/dl (31.0-37.0); Mean Corpuscular Hemoglobin 28.3 pg (25.0-35.0); Mean Corpuscular Volume 85 fL (80-100); Monocytes # (Auto) 0.5 Thou/mm3 (0.0-0.8); Monocytes % (Auto) 8 % (0-12); Neutrophils # (Auto) 4.4 Thou/mm3 (1.8-7.7); Neutrophils % (Auto) 69 % (37-80); Nucleated Red Blood Cell % 0 /100 WBC (0); Platelet Count 274 Thou/mm3 (140-440); RDW Standard Deviation 42.3 fL (35.1-43.9); Red Blood Count 3.11 Miln/mm3 (4.50-5.90); White Blood Count 6.4 Thou/mm3 (3.8-10.6)
[2024-05-15 13:37] LABS: Hemoglobin 8.8 g/dL (13.5-16.0)
[2024-05-15 13:41] LABS: INR 1.1 (0.9-1.3); Partial Thromboplastin Time 25.6 Seconds (22.0-36.0); Prothrombin Time 11.9 Seconds (9.0-12.2)
[2024-05-15 13:47] LABS: B-Type Natriuretic Peptide 67 pg/mL (0-100)
[2024-05-15 13:59] LABS: Alanine Aminotransferase < 7 U/L (10-49); Albumin, Serum 3.5 gm/dL (3.4-4.8); Albumin/Globulin Ratio 1.4 (1.2-2.2); Alkaline Phosphatase 86 U/L (46-116); Anion Gap 5 (7-16); Aspartate Amino Transferase 23 U/L (0-34); BUN/Creatinine Ratio 21 Ratio (12-20); Bilirubin,Total 0.4 mg/dL (0.3-1.2); Blood Urea Nitrogen 25 mg/dL (9-23); Calcium 10.9 mg/dL (8.3-10.6); Calcium (Corrected) 11.3 mg/dL (8.5-10.1); Carbon Dioxide 30.5 mMol/L (20.0-31.0); Chloride 100 mMol/L (98-107); Creatinine (Component) 1.2 mg/dL (0.6-1.3); Estimated Creatinine Clearance 47.2 mL/min (>60); Globulin 2.5 gm/dL (2.3-3.5); Glucose 228 mg/dL (74-106); LDH (Lactate Dehydrogenase) 237 U/L (120-246); Lipase 38 U/L (12-53); Magnesium 1.2 mg/dL (1.6-2.6); Osmolality,Calculated 281 (275-295); Phosphorous 2.8 mg/dL (2.4-5.1); Procalcitonin 0.05 ng/ml (0.0-0.49); Sodium 135 mMol/L (136-145); eGFR > 60 See Note
[2024-05-15 14:01] LABS: Collection Type, Urine Clean Catch; Squamous Epithelial Cell,Urine 0 /hpf (0-5)
[2024-05-15 14:22] LABS: Bilirubin,Urine Negative (Negative); Blood,Urine Negative (Negative); Clarity,Urine Clear (Clear/Hazy); Color,Urine Colorless (Lt Yel-Yel); Glucose, Urine 1+ (Negative); Hyaline Casts,Urine < 1 /hpf (0-1); Ketones,Urine Negative (Negative); Leukocyte Esterase,Urine Negative (Negative); Nitrite,Urine Negative (Negative); Protein,Urine Negative (Neg - Trace); RBC,Urine 2 /hpf (0-3); Specific Gravity,Urine 1.014 (1.001-1.035); Urobilinogen,Urine Negative mg/dL (0.0-1.0); WBC,Urine 1 /hpf (0-5)
--- NOTE | 2024-05-15 14:29 | PD.EDSYNC ---
ED Syncope RME/HPI General Chief Complaint: Syncope / Near Syncope Stated Complaint: SYNCOPAL Time Seen by Provider: 05/15/24 12:15 Arrival date/time: 05/15/24 12:11 RME / HPI RME / HPI narrative: 78-year-old male patient with significant history of diabetes mellitus hypertension, Parkinson disease, was brought in by EMS for evaluation regarding syncope. Patient was noted to be sitting in wooden chair, slumped, and less responsive. When the EMS arrived patient blood pressure was noted to be in the 70s systolic. Patient woke up right away when the legs were elevated. Patient was also given IV fluids on the way to the emergency room. On my initial evaluation patient is denying any complaints. Related Data Home Medications ?Medication ?Instructions ?Recorded ?Confirmed carbidopa 25 mg-levodopa 100 mg 1 tab PO TID 01/05/22 03/06/24 tablet lisinopril 20 mg tablet 20 mg PO QDAY 01/05/22 03/06/24 metformin 1,000 mg tablet 1,000 mg PO BID 01/05/22 03/06/24 sucralfate 1 gram tablet 1 g PO BID 01/05/22 03/06/24 tamsulosin 0.4 mg capsule 0.4 mg PO QDAY 01/05/22 03/06/24 trihexyphenidyl 2 mg tablet 2 mg PO TID 01/05/22 03/06/24 carbidopa ER 48.75 mg-levodopa 195 1 cap PO TID 03/05/24 03/06/24 mg capsule,extended release (Rytary) glipizide 10 mg tablet 10 mg PO BID 03/05/24 03/06/24 hydrochlorothiazide 12.5 mg tablet 12.5 mg PO QDAY 03/05/24 03/06/24 rasagiline 1 mg tablet 1 mg PO QDAY 03/05/24 03/06/24 Previous Rx's ?Medication ?Instructions ?Recorded pantoprazole 40 mg tablet,delayed 40 mg PO QDAY #14 tabs 11/11/23 release (Protonix) amoxicillin 875 mg-potassium 1 tab PO BID #14 tabs 05/15/24 clavulanate 125 mg tablet Allergies Allergy/AdvReac Type Severity Reaction Status Date / Time No Known Allergies Allergy Verified 03/06/24 08:27 Review of Systems Review of Systems Narrative Review of Systems: Review of system reviewed and within normal limits except mentioned in HPI ED Exam Narrative Physical exam: VITAL SIGNS: Reviewed. GENERAL APPEARANCE: Alert and interactive, follows commands, no acute distress, HEAD AND FACE: Non-traumatic. ENT: PERRL, pink conjunctivitis, eyelid no trauma, Mucous membrane moist. NECK: Supple, nontender, no nuchal rigidity. CHEST: No tenderness, no crepitus, no paradoxical movement, no retractions. LUNGS: Clear, well ventilated, symmetric, no rales, no wheezing, no ronchi, no stridor, good breath sounds bilaterally. HEART: Regular rate, regular rhythm, no murmur, no gallops. ABDOMEN: Soft, positive bowel sounds, nondistended, no guarding, nontender, no rebound, no masses, RECTAL: Deferred. GENITAL: Deferred. NEUROLOGICAL: Gross motor function intact sensory function intact, Appropriate for age. MUSCULOSKELETAL: low back nontender, full range of motion. EXTREMITIES: Nontender, full range of motion. SKIN: Color pink, dry, no rash, no lacerations, no abrasions, no contusions. LYMPHATICS: Deferred. Course Quality Measures none Orders Category Date Time Status Bedside COVID-19 Antigen Test NOW Care 05/15/24 12:25 Active Bedside Influenza A&B Antigen Test NOW Care 05/15/24 12:26 Completed Regional Operations Director STAT Care 05/15/24 12:24 Active Continuous Pulse Oximetry STAT Care 05/15/24 12:24 Completed EKG (ED ONLY) *Do not use* NOW Care 05/15/24 12:24 Completed In and Out Catheter X1PRN Care 05/15/24 12:24 Active Insert IV NOW Care 05/15/24 12:24 Active NPO STAT Care 05/15/24 12:24 Active Orthostatic Vitals X1 Care 05/15/24 14:31 Active Strict Intake and Output Routine Care 05/15/24 12:24 Ordered EKG (ED Only) Stat Exams 05/15/24 12:24 Draft XR chest 1V SEPSIS PROTOCOL Stat Exams 05/15/24 12:24 Completed B-Type Natriuretic Peptide Stat Lab 05/15/24 13:14 Completed Blood Culture (Lab) Stat Lab 05/15/24 13:14 Received CBC Stat Lab 05/15/24 13:14 Completed Comprehensive Metabolic Panel Stat Lab 05/15/24 13:14 Completed LDH (Lactate Dehydrogenase) Stat Lab 05/15/24 13:14 Completed Lactate (Lactic Acid) Stat Lab 05/15/24 13:14 Completed Lipase Stat Lab 05/15/24 13:14 Completed Magnesium Stat Lab 05/15/24 13:14 Completed Partial Thromboplastin Time Stat Lab 05/15/24 13:14 Completed Phosphorous Stat Lab 05/15/24 13:14 Completed Procalcitonin Stat Lab 05/15/24 13:14 Completed Prothrombin Time with INR Stat Lab 05/15/24 13:14 Completed Troponin I Stat Lab 05/15/24 13:14 Completed Urinalysis Stat Lab 05/15/24 13:55 Completed Urine Culture Stat Lab 05/15/24 13:55 Received Magnesium Sulfate 2 GM Ivpb [Magnesium Sulfate Ivpb] Med 05/15/24 14:57 Active 2 gm in 50 ml IV X1 Sodium Chloride 0.9% 1000 ml [Ns] 1,000 ml Med 05/15/24 12:28 Discontinued IV 999 mls/hr cefTRIAXone/D5w 1gm IV premix [Rocephin/D5w 1gm IV Med 05/15/24 14:57 Active premix] 50 ml IV X1 Oxygen Delivery NOW RT 05/15/24 12:24 Active Vital Signs Vital signs: Vital Signs Temperature 97.0 F 05/15/24 12:36 Pulse Rate 96 05/15/24 12:36 Respiratory Rate 16 05/15/24 12:36 Blood Pressure 153/74 H 05/15/24 12:36 Pulse Oximetry (%) 95 05/15/24 12:36 Oxygen Delivery Method Nasal Cannula 05/15/24 12:36 Oxygen Flow Rate 1 05/15/24 12:36 Syncope MDM Narrative MDM Narrative:: 78-year-old male patient with significant history of diabetes mellitus hypertension, Parkinson disease, was brought in by EMS for evaluation regarding syncope. Patient was noted to be sitting in wooden chair, slumped, and less responsive. When the EMS arrived patient blood pressure was noted to be in the 70s systolic. Patient woke up right away when the legs were elevated. Patient was also given IV fluids on the way to the emergency room. On my initial evaluation patient is denying any complaints. Laboratory couple came back unremarkable. Except for the x-ray that showed mild pneumonia. Patient's orthostatic vital signs are within normal limits, there is no drop in blood pressure on standing or sitting. Patient verbalized complete resolution of symptoms. Ambulatory with help. Patient received magnesium replacement and IV ceftriaxone prior to discharge. Was also given 1 L of IV fluids. Latest blood pressure was noted to be 153/77 heart rate of 81 Patient data External records reviewed:: None Clinical information provided by:: patient and family Social determinants that could affect healthcare access:: none Patient has the following chronic illnesses:: History of Parkinson, hypertension, diabetes mellitus How is presenting disease/condition affected by chronic disease/condition?: exacerbated by Evaluation data The following diagnostics were reviewed and interpreted by me:: lab results, radiology exam(s) and EKG tracing(s) Lab and/or radiology exams considered but not ordered:: None Interpretation Summary: EKG as interpreted by me showed sinus rhythm, ventricular rate of 73 bpm, SD interval 228 MS, no ST segment elevation depression noted. The rest of the laboratory workup and findings see MDM. Medications / Prescriptions Medications or Prescriptions considered but not ordered:: None Medication administrations:: Medication Administration History Magnesium Sulfate (Magnesium Sulfate Ivpb) 2 gm in 50 mls @ 25 mls/hr IV X1 ONE Stop: 05/15/24 16:56 Ceftriaxone Sodium/Dextrose (Rocephin/D5w 1gm Iv Premix) 50 mls @ 100 mls/hr IV X1 ONE Stop: 05/15/24 15:26 Discontinued Medications Sodium Chloride (Ns) 1,000 mls @ 999 mls/hr IV .Q1H1M ONE Stop: 05/15/24 13:28 Last Infusion: 05/15/24 14:17 Dose: Infused Documented By: Admin: 05/15/24 13:08 Dose: 999 mls/hr Documented By: Magnesium sulfate, IV fluids, and ceftriaxone IV Consultations Consultation(s) initiated? (list below): No Consultation #1 (Physician, Specialty, Details): None Diagnosis Syncope Differential Diagnosis: syncope due to orthostatic hypotension, vasovagal syncope and dehydration Most likely diagnosis given after review of the tests above:: Pneumonia, orthostatic hypotension causing syncope Admission Indicated Admission indicated?: not indicated Explain why admission is indicated or not indicated:: Stable Admission Request Was there a request for admission?: No Disposition Plan Disposition Plan: Discharge Discharge Attestation Discharge Attestation: The patient and all family members were given an opportunity to ask questions and understood the discharge instructions. Discharge instructions specifically effects, indications for sooner follow up or return to the emergency department, and the expected course of current diagnosis. Patient condition: Stable Discharge Plan Plan Patient Disposition: HOME (Self Care) Disposition Comment: stable Prescriptions/Referrals Prescriptions/Med Rec: New amoxicillin-pot clavulanate 875-125 mg tablet 1 tab PO BID Qty: 14 0RF No Action metformin 1,000 mg tablet 1,000 mg PO BID tamsulosin 0.4 mg capsule 0.4 mg PO QDAY Patient Comments: take 1 capsule by mouth once daily trihexyphenidyl 2 mg tablet 2 mg PO TID Patient Comments: take 1 tablet by mouth three times a day lisinopril 20 mg tablet 20 mg PO QDAY Patient Comments: take 1 tablet by mouth once daily carbidopa-levodopa 25-100 mg tablet 1 tab PO TID Patient Comments: take 1 and 1/2 tablet by mouth four times a day sucralfate 1 gram tablet 1 g PO BID pantoprazole [Protonix] 40 mg tablet,delayed release (DR/EC) 40 mg PO QDAY Qty: 14 0RF glipizide 10 mg Tablet 10 mg PO BID rasagiline 1 mg Tablet 1 mg PO QDAY hydrochlorothiazide 12.5 mg Tablet 12.5 mg PO QDAY Rytary 48.75-195 mg Capsule, Extended Release 1 cap PO TID Rx Instructions: divide evenly over waking hours Problem List Clinical Impression: Hypotension, Pneumonia Patient/Caregiver Discharge Instructions Discharge Activity: activity as tolerated Education Materials: ED Pneumonia (Adult) Additional Instructions: Thank you for the opportunity for serving you today. You are stable for discharged . You are advised to: Follow-up with your PCP in 1 to 2 days Return to ED for worsening of symptoms Increase oral fluids Take medication as prescribed Print Language: Mosotho Stand Alone Forms: Paula Award Info., Patient Portal Info Letter DAVID/MOUSTAPHA Supervising Physician DAVID/MOUSTAPHA Supervising Physician: MD Remedios
[2024-05-15] MEDS: cefTRIAXone 1,000 MG in SODIUM CHLORIDE 0.9% (P) 50 ML 100 MG IV (16:06)
[2024-05-15] MEDS: Magnesium Sulfate 2 GM Ivpb 2 GM/50 ML BAG IV (16:47)
== END 2024-05-15 16:00 | disposition home or self-care (01) ==
LOC: SERX 21:33
PROVIDERS: Nurse Practitioner Family; Emergency Provider Emergency Medicine
DX: J18.9 Pneumonia, unspecified organism (principal); I95.9 Hypotension, unspecified; I44.0 Atrioventricular block, first degree
CPT/HCPCS: 36415; 71045; 80053; 81001; 83605; 83615; 83690; 83735; 83880; 84100; 84145; 84484; 85025; 85610; 85730; 87040; 87086; 87400; 87811; 93005; 96361; 96365; 96366; 96367; 99284; J0696; J3475; J7030; J7050

== ENCOUNTER 2024-09-11 17:01 | Emergency (ER) | payer MEDICARE, MEDICAID, SELFPAY ==
[2024-09-11 17:18] VITALS: BP 107/57; PULSE 63; RESP 18; TEMP 36.6; O2SAT 97
--- NOTE | 2024-09-11 17:58 | EKG_ITS ---
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
--- NOTE | 2024-09-11 17:59 | PD.EDWEAK ---
ED Weakness RME/HPI General Chief complaint: Dizziness Stated complaint: Low blood pressure, diarrhea X 8 days Time Seen by Provider: 09/11/24 17:11 Arrival date/time: 09/11/24 17:01 RME / HPI RME / HPI Narrative: DR. HALE MAIN ED EVALUATION: 78 Y/o male with Hx of Parkinson's Dementia, Enlarged prostate, and Gastric ulcer presents to ED c/o generalized weakness. Patient was advised to present to ED by his PCP Dr. Dong for IV hydration. Patient has been experiencing diarrhea for the last 8 days. Denies any recent travel, sick contacts, or any other associated symptoms. 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 No other concerns or complaints expressed at this time. Related Data Home Medications ?Medication ?Instructions ?Recorded ?Confirmed carbidopa 25 mg-levodopa 100 mg 1 tab PO TID 01/05/22 03/06/24 tablet lisinopril 20 mg tablet 20 mg PO QDAY 01/05/22 03/06/24 metformin 1,000 mg tablet 1,000 mg PO BID 01/05/22 03/06/24 sucralfate 1 gram tablet 1 g PO BID 01/05/22 03/06/24 tamsulosin 0.4 mg capsule 0.4 mg PO QDAY 01/05/22 03/06/24 trihexyphenidyl 2 mg tablet 2 mg PO TID 01/05/22 03/06/24 carbidopa ER 48.75 mg-levodopa 195 1 cap PO TID 03/05/24 03/06/24 mg capsule,extended release (Rytary) glipizide 10 mg tablet 10 mg PO BID 03/05/24 03/06/24 hydrochlorothiazide 12.5 mg tablet 12.5 mg PO QDAY 03/05/24 03/06/24 rasagiline 1 mg tablet 1 mg PO QDAY 03/05/24 03/06/24 Previous Rx's ?Medication ?Instructions ?Recorded pantoprazole 40 mg tablet,delayed 40 mg PO QDAY #14 tabs 11/11/23 release (Protonix) amoxicillin 875 mg-potassium 1 tab PO BID #14 tabs 05/15/24 clavulanate 125 mg tablet Allergies Allergy/AdvReac Type Severity Reaction Status Date / Time No Known Allergies Allergy Verified 09/11/24 17:07 Review of Systems Review of Systems Systems Reviewed: All systems reviewed, normal except as documented Past Medical History Past Medical History NEUROLOGIC: Positive Neurological Disorders and Parkinson's Disease CARDIAC: Positive Cardiac Disorders, Peripheral Vascular Disease, Hypertension and Varicose Veins GASTROINTESTINAL: Positive Gastrointestinal Disorders, Ulcer and Gastroesophageal Reflux Disease GENITOURINARY: Positive Genitourinary Disorders, Inguinal Hernia and Benign Prostatic Hyperplasia MUSCULOSKELETAL: Positive Musculoskeletal Disorders and Arthritis ENT: Positive Cataracts ENDOCRINE: Positive Endocrine Disorders and Diabetes Mellitus Type 2 OTHER HISTORY: Positive Hospitalization (gastric ulcers) Family History FAMILY HISTORY: Positive Family Cancer Surgical History SURGICAL: Positive Vascular Surgery (legs) ED Exam Narrative Physical exam: GEN. APPEARANCE: The patient is alert awake oriented X-3 in no apparent distress, lying down comfortably, does not look ill/toxic. Patient has good eye contact. Patient is cooperative. Thin build. Appears dehydrated. VITALS: All vitals were reviewed and the pulse ox is []% on room air which is normal according to my interpretation. HEENT: Normocephalic, atraumatic. Pupils are equal and reactive. Oral mucosa is moist. Patent Nares NECK: Supple, nontender, no thyromegaly, no meningismus, no JVD, no step offs CHEST: Symmetrical, atraumatic, and with equal expansion , Nontender on palpation no deformity and no crepitus. CARDIOVASCULAR: Heart regular rhythm no murmur or gallop rub or extra beats. LUNGS: Clear to auscultation bilaterally with symmetrical chest rise. No laboring tachypnea or wheezing. No intercostal subcostal retraction. No rales and no rhonchi. ABDOMEN: Soft, flat, nontender to palpation, no guarding or rebound tenderness. There are no abnormal masses palpated. Active and normal bowel sounds. EXTREMITIES: Nontender. No edema. No cyanosis. Patient is able to move all 4 extremities well, with full ROM and good CSM. Unintentional tremors. SKIN: Warm and dry, no jaundice or rashes noted. Course Quality Measures none Orders Category Date Time Status EKG (ED ONLY) *Do not use* NOW Care 09/11/24 17:58 Completed Fingerstick [Bedside Blood Glucose] NOW Care 09/11/24 17:46 Completed Insert IV STAT Care 09/11/24 17:[address] abdomen pelvis wo con Stat Exams 09/11/24 21:38 Completed EKG (ED Only) Stat Exams 09/11/24 17:58 Draft CBC Stat Lab 09/11/24 18:05 Completed Clostridium Difficile PCR Stat Lab 09/11/24 Ordered Comprehensive Metabolic Panel Stat Lab 09/11/24 18:05 Completed Lipase Stat Lab 09/11/24 18:05 Completed Magnesium Stat Lab 09/11/24 18:05 Completed Urinalysis Stat Lab 09/11/24 19:55 Completed Magnesium Sulfate 2 GM Ivpb [Magnesium Sulfate Ivpb] Med 09/11/24 19:06 Discontinued 2 gm in 50 ml IV X1 Sodium Chloride 0.9% 500 ml [Ns] 500 ml Med 09/11/24 17:58 Discontinued IV 999 mls/hr Vital Signs Vital signs: Vital Signs Temperature 97.9 F 09/11/24 17:18 Pulse Rate 63 09/11/24 17:18 Respiratory Rate 18 09/11/24 17:18 Blood Pressure 107/57 L 09/11/24 17:18 Pulse Oximetry (%) 97 09/11/24 17:18 Oxygen Delivery Method Room Air 09/11/24 17:18 Weakness MDM Narrative MDM Narrative:: Scribe Attestation: Angelina Ryan am scribing for and in the presence of Dr. Hale. Provider Notation: Although this document has been carefully reviewed, there may still be some phonetic and other typographical errors.? These errors are purely grammatical due to imperfections in the software program and should not be construed in any way to? compromise the substance of the patient's medical care during this visit. Patient pending labs, IV fluids, and EKG. Patient signed-out to Dr. Momin, the [facility] ED physician, at 18:00 hours. Patient data External records reviewed:: [facility] previous records (Reviewed prior ED records from 05/15/24. Patient was seen for Hypotension.) Clinical information provided by:: patient and spouse () Social determinants that could affect healthcare access:: other (specify) (Baseline mentation) Patient has the following chronic illnesses:: Parkinson's Dementia Disease, Peripheral Vascular Disease, Hypertension, Varicose Veins, Ulcer, Gastroesophageal Reflux Disease, nguinal Hernia, Benign Prostatic Hyperplasia, Arthritis, Cataracts, Diabetes Mellitus Type 2 How is presenting disease/condition affected by chronic disease/condition?: exacerbated by Evaluation data The following diagnostics were reviewed and interpreted by me:: lab results and EKG tracing(s) Lab and/or radiology exams considered but not ordered:: None Interpretation Summary: Pending. Medications / Prescriptions Medications or Prescriptions considered but not ordered:: None Medication administrations:: Medication Administration History Discontinued Medications Sodium Chloride (Ns) 500 mls @ 999 mls/hr IV .Q31M ONE Stop: 09/11/24 18:28 Last Infusion: 09/11/24 18:46 Dose: Infused Documented By: Admin: 09/11/24 18:13 Dose: 999 mls/hr Documented By: MANDEEP Magnesium Sulfate (Magnesium Sulfate Ivpb) 2 gm in 50 mls @ 25 mls/hr IV X1 ONE Stop: 09/11/24 21:05 Last Infusion: 09/11/24 21:10 Dose: Infused Documented By: Admin: 09/11/24 19:14 Dose: 25 mls/hr Documented By: JEWEL See above if any. Consultations Consultation(s) initiated? (list below): No Diagnosis Weakness Differential Diagnosis: hypoglycemia, hypothyroidism, rhabdomyolysis, sepsis and dehydration Most likely diagnosis given after review of the tests above:: Parkinson's, DM and HTN Admission Indicated Admission indicated?: not indicated Admission Request Was there a request for admission?: No Disposition Plan Disposition Plan: other (specify) (Sign-out to Dr. Momin at 18:00 hours.) Discharge Plan Plan Patient Disposition: HOME (Self Care) Prescriptions/Referrals Prescriptions/Med Rec: No Action amoxicillin-pot clavulanate 875-125 mg tablet 1 tab PO BID Qty: 14 0RF metformin 1,000 mg tablet 1,000 mg PO BID tamsulosin 0.4 mg capsule 0.4 mg PO QDAY Patient Comments: take 1 capsule by mouth once daily trihexyphenidyl 2 mg tablet 2 mg PO TID Patient Comments: take 1 tablet by mouth three times a day lisinopril 20 mg tablet 20 mg PO QDAY Patient Comments: take 1 tablet by mouth once daily carbidopa-levodopa 25-100 mg tablet 1 tab PO TID Patient Comments: take 1 and 1/2 tablet by mouth four times a day sucralfate 1 gram tablet 1 g PO BID pantoprazole [Protonix] 40 mg tablet,delayed release (DR/EC) 40 mg PO QDAY Qty: 14 0RF glipizide 10 mg Tablet 10 mg PO BID rasagiline 1 mg Tablet 1 mg PO QDAY hydrochlorothiazide 12.5 mg Tablet 12.5 mg PO QDAY Rytary 48.75-195 mg Capsule, Extended Release 1 cap PO TID Rx Instructions: divide evenly over waking hours Problem List Clinical Impression: Diarrhea, Hypomagnesemia Patient/Caregiver Discharge Instructions Education Materials: Treating Diarrhea Print Language: Polish Stand Alone Forms: Paula Award Info., Patient Portal Info Letter
[2024-09-11] MEDS: SODIUM CHLORIDE 0.9% 500 ML 500 ML 999 ML IV (18:13)
--- NOTE | 2024-09-11 18:13 | PD.EDADDENDU ---
Emergency Room Addendum Addendum Narrative: 1800: Care assumed from Dr. Hale (emergency physician). Past medical, surgical, social and family history reviewed. Vitals and home medications reviewed. Results and treatment plan discussed. They will assume the care of the patient at this time and will follow the patient, pending labs, EKG, and IV fluids. The following addendum documentation note is intended to reflect any pending information, findings, or radiology results not included in the patient?s initial chart by the previous shift zahraaibe. 183: EKG manual reading, my interpretation: sinus rhythm, rate: 57 bpm, Left axis deviation, mild upper slope ST elevation in V1,V2, and V3, T-wave inversion at V2 and V3 AVF, Mild ST elevation at V4 and V5. RADIOLOGY Abdomen/Pelvis CT: Patient: IVETTE COLORADO [facility]. Record#: [id number] Birthdate: 1945 Age/Sex: 78 / M Location: [facility] Attending Dr: Ordering Physician: Linda Momin MD Date of Service: 09/11/24 Procedure(s): CT abdomen pelvis wo [facility] Accession Number(s): [id number] cc: Lee De La Cruz MD; Juaquin Randolph MD; Linda Momin MD~ Examination: CT abdomen and pelvis without contrast. Coronal 3-D reconstructions. Sagittal 2-D reconstructions. Date and time of exam:September 14, 2024, 10:51 PM INDICATIONS: Diarrhea today CTDI: vol (mGy): 10 DLP: (mGycm): 09/25/1958 Technique: Axial images of the abdomen have been obtained, 3 mm slice thickness Intravenous contrast material has not been administered. Low dose protocols were performed. One or more of the following dose reduction techniques were used; automated exposure control, adjustment of the mA and/or KV according to patient size, use of iterative reconstruction technique. Findings: Retrocardiac gastric hernia No focal liver or splenic lesion No gallstones No pancreatic mass No renal or ureteral calculi, no hydronephrosis Abundant fluid and stool throughout the colon Normal appendix No bowel obstruction Urinary bladder intact Transverse prostate dimension 4.5 cm Grade 1 anterolisthesis of L4 on L5 IMPRESSION: Retrocardiac gastric hernia No renal or ureteral calculi, no hydronephrosis Normal appendix Abundant fluid and stool throughout the colon, no obstruction Dictated By: Juaquin Randolph MD Signed By: <Electronically signed by Juaquin Randolph MD in OV> 09/11/24 2301 [id number]: I have spoken with the patient and discussed today?s findings, in addition to providing specific details for the plan of care. Questions are answered and there is an agreement with the plan. Re-assessment at the time of disposition demonstrates that the patient is in no acute distress. The patient has remained stable throughout the entire ED visit and is without objective evidence for acute process requiring urgent intervention or hospitalization. The patient is stable for discharge; counseling is provided and documented as above, discussing symptomatic treatment and specific conditions for return
[2024-09-11 18:17] LABS: Basophils % (Auto) 1 % (0-2.5); Eosinophils # (Auto) 0.5 Thou/mm3 (0.0-0.5); Eosinophils % (Auto) 7 % (0-10); Hematocrit 26.9 % (41.0-53.0); Immature Granulocytes % (Auto) 0 % (0-0); Immature Granulocytes Auto 0.01 Thou/mm3 (0.00-0.00); Lymphocytes # (Auto) 1.6 Thou/mm3 (1.0-4.8); Lymphocytes % (Auto) 22 % (10-50); Mean Corpuscular Hemoglobin 25.1 pg (25.0-35.0); Mean Corpuscular Volume 79 fL (80-100); Monocytes # (Auto) 0.5 Thou/mm3 (0.0-0.8); Monocytes % (Auto) 8 % (0-12); Neutrophils # (Auto) 4.5 Thou/mm3 (1.8-7.7); Neutrophils % (Auto) 62 % (37-80); Nucleated Red Blood Cell % 0 /100 WBC (0); Platelet Count 248 Thou/mm3 (140-440); RDW Standard Deviation 53.7 fL (35.1-43.9); Red Blood Count 3.42 Miln/mm3 (4.50-5.90); White Blood Count 7.2 Thou/mm3 (3.8-10.6)
[2024-09-11 18:20] LABS: Hemoglobin 8.6 g/dL (13.5-16.0)
[2024-09-11 18:30] VITALS: BP 126/64; PULSE 58; RESP 15; O2SAT 100
[2024-09-11 18:42] LABS: Alanine Aminotransferase < 7 U/L (10-49); Albumin, Serum 4.1 gm/dL (3.4-4.8); Albumin/Globulin Ratio 1.5 (1.2-2.2); Alkaline Phosphatase 63 U/L (46-116); Anion Gap 9 (7-16); Aspartate Amino Transferase 15 U/L (0-34); BUN/Creatinine Ratio 19 Ratio (12-20); Bilirubin,Total 0.2 mg/dL (0.3-1.2); Blood Urea Nitrogen 26 mg/dL (9-23); Calcium 9.3 mg/dL (8.3-10.6); Calcium (Corrected) 9.3 mg/dL (8.5-10.1); Carbon Dioxide 27.1 mMol/L (20.0-31.0); Chloride 105 mMol/L (98-107); Creatinine (Component) 1.4 mg/dL (0.6-1.3); Globulin 2.8 gm/dL (2.3-3.5); Glucose 149 mg/dL (74-106); Lipase 38 U/L (12-53); Magnesium 1.3 mg/dL (1.6-2.6); Osmolality,Calculated 288 (275-295); Sodium 141 mMol/L (136-145); Total Protein 6.9 gm/dL (5.7-8.2); eGFR 51 See Note
[2024-09-11] MEDS: Magnesium Sulfate 2 GM Ivpb 2 GM/50 ML BAG IV (19:14)
[2024-09-11 20:18] LABS: Collection Type, Urine Clean Catch
[2024-09-11 20:26] LABS: Bilirubin,Urine Negative (Negative); Blood,Urine Negative (Negative); Clarity,Urine Clear (Clear/Hazy); Color,Urine Yellow (Lt Yel-Yel); Glucose, Urine Negative (Negative); Hyaline Casts,Urine 1 /hpf (0-1); Ketones,Urine Negative (Negative); Leukocyte Esterase,Urine Negative (Negative); Nitrite,Urine Negative (Negative); Protein,Urine Negative (Neg - Trace); RBC,Urine 3 /hpf (0-3); Specific Gravity,Urine 1.015 (1.001-1.035); Squamous Epithelial Cell,Urine < 1 /hpf (0-5); Urobilinogen,Urine Negative mg/dL (0.0-1.0); WBC,Urine 2 /hpf (0-5)
--- NOTE | 2024-09-11 21:38 | XR_ITS ---
Examination: CT abdomen and pelvis without contrast. Coronal 3-D reconstructions. Sagittal 2-D reconstructions. Date and time of exam:September 14, 2024, 10:51 PM INDICATIONS: Diarrhea today CTDI: vol (mGy): 10 DLP: (mGycm): 09/25/1958 Technique: Axial images of the abdomen have been obtained, 3 mm slice thickness Intravenous contrast material has not been administered. Low dose protocols were performed. One or more of the following dose reduction techniques were used; automated exposure control, adjustment of the mA and/or KV according to patient size, use of iterative reconstruction technique. Findings: Retrocardiac gastric hernia No focal liver or splenic lesion No gallstones No pancreatic mass No renal or ureteral calculi, no hydronephrosis Abundant fluid and stool throughout the colon Normal appendix No bowel obstruction Urinary bladder intact Transverse prostate dimension 4.5 cm Grade 1 anterolisthesis of L4 on L5 IMPRESSION: Retrocardiac gastric hernia No renal or ureteral calculi, no hydronephrosis Normal appendix Abundant fluid and stool throughout the colon, no obstruction
[2024-09-11 22:21] VITALS: BP 152/83; PULSE 60; RESP 15; TEMP 36.9; O2SAT 100
[2024-09-11 23:34] VITALS: BP 126/48; PULSE 63; RESP 16; O2SAT 100
== END 2024-09-11 23:54 | disposition home or self-care (01) ==
PROVIDERS: Emergency Medicine; Emergency Provider Emergency Medicine; PCP Family Medicine
DX: E83.42 Hypomagnesemia (principal); K46.9 Unspecified abdominal hernia without obstruction or gangrene; I44.0 Atrioventricular block, first degree; R19.7 Diarrhea, unspecified; I10 Essential (primary) hypertension
CPT/HCPCS: 36415; 74176; 80053; 81001; 83690; 83735; 85025; 87493; 93005; 96361; 96365; 96366; 99284; J3475; J7040

== ENCOUNTER 2024-11-21 07:54 | Emergency (ER) | payer MEDICARE, MEDICAID, SELFPAY ==
[2024-11-21] VITALS (7 sets, daily range): BP systolic 142–174; BP diastolic 66–93; PULSE 69–78; RESP 14–18; TEMP 36.6–37.1; O2SAT 96–100; BMI 25.0; BMI 19.3
--- NOTE | 2024-11-21 08:40 | XR_ITS ---
Examination: CT abdomen with intravenous contrast CT pelvis with intravenous contrast 2-D coronal reconstructions 2-D sagittal reconstructions Date and time of exam:November 21, 2024, 1422 hrs., Comparison September 09, 2024. Indications: Diarrhea one month with decreased appetite. CTDI: vol (mGy) 6.38 DLP: (mGycm) 370 Technique: Multiple axial sections of the abdomen and pelvis have been obtained. 64 slice high-resolution scanner used. 3 mm axial sections have been obtained, post intravenous injection 60 cc [id number]. 2-D sagittal, coronal reconstructions obtained. Low dose protocols were performed. One or more of the following dose reduction techniques were used; automated exposure control, adjustment of the mA and/or KV according to patient size, use of iterative reconstruction technique. Findings: Retrocardiac gastric hernia. Significant mucosal edema in the stomach Probable pill at the GE junction. Liver is irregular in contour. No definite gallstones Spleen is not enlarged No pancreatic or adrenal mass. Perinephric stranding Minimal dilatation of the renal calyces and ureters, consider urinary tract infection Abundant stool throughout the colon Normal appendix No bowel obstruction Normal seminal vesicles Transverse prostate dimension 4.5 cm No bladder mass or bladder calculi Severe osteopenia with grade 1 anterolisthesis L4 on L5 Old healed right hip fracture Moderate narrowing hip joints Impression: Gastritis pattern Suspicious for urinary tract infection Abundant stool throughout the entire colon. Normal appendix No bowel obstruction
--- NOTE | 2024-11-21 08:42 | EKG_ITS ---
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
--- NOTE | 2024-11-21 08:42 | XR_ITS ---
Examination: AP chest single view Technique: AP portable upright chest single view Date and time: November 21, 2024, 0945 hrs., Comparison May 15, 2024. Indications: Chest pain shortness of breath today. Findings: Moderate hyperexpansion. Mild enlargement left ventricle. No lobar pneumonia or pulmonary edema. Impression: Moderate hyperexpansion. No lobar pneumonia or pulmonary edema.
--- NOTE | 2024-11-21 08:42 | PD.EDRME ---
Rapid Medical Screening Exam RME Arrival date/time: 11/21/24 07:54 Chief Complaint: Nausea/Vomiting/Diarrhea Time Seen by Provider: 11/21/24 08:40 Vital signs: Vital Signs Temperature 98.8 F 11/21/24 08:26 Pulse Rate 75 11/21/24 08:26 Respiratory Rate 18 11/21/24 08:26 Blood Pressure 147/66 H 11/21/24 08:26 Pulse Oximetry (%) 97 11/21/24 08:26 Oxygen Delivery Method Room Air 11/21/24 08:26 Vital signs reviewed by provider: Yes RME Narrative: Patient is an 79-year-old male with medical history notable for diabetes, Parkinson's disease, hypertension, urinary incontinence diaper dependent that is in the emergency department but in by his with concerns for more than 2 weeks of recurrent diarrhea and 1 day of emesis and feeling weak. Denies fevers chills palpitations however does endorse some chest pain. Has lower extremity swelling that getting worse. Denies drugs alcohol smoking dysuria melena bloody stools. No sick contacts no recent travel. Patient's states that they recently came to the emergency department for a similar presentation. Patient's states that he is on many medications however she does not know what medications he is on. There is nobody at home that can help guide what medications the patient is taking.
[2024-11-21 09:45] LABS: Basophils # (Auto) 0.0 Thou/mm3 (0.0-0.2); Basophils % (Auto) 0 % (0-2.5); Eosinophils # (Auto) 0.1 Thou/mm3 (0.0-0.5); Eosinophils % (Auto) 1 % (0-10); Hematocrit 29.5 % (41.0-53.0); Hemoglobin 9.5 g/dL (13.5-16.0); Immature Granulocytes Auto 0.02 Thou/mm3 (0.00-0.00); Lymphocytes # (Auto) 1.2 Thou/mm3 (1.0-4.8); Lymphocytes % (Auto) 15 % (10-50); Mean Corpuscular HGB Conc 32.2 g/dl (31.0-37.0); Mean Corpuscular Hemoglobin 25.7 pg (25.0-35.0); Mean Corpuscular Volume 80 fL (80-100); Monocytes # (Auto) 0.6 Thou/mm3 (0.0-0.8); Monocytes % (Auto) 8 % (0-12); Neutrophils # (Auto) 6.0 Thou/mm3 (1.8-7.7); Neutrophils % (Auto) 76 % (37-80); Nucleated Red Blood Cell # 0.00 Thou/mm3 (0.00-0.00); Nucleated Red Blood Cell % 0 /100 WBC (0); Platelet Count 272 Thou/mm3 (140-440); RDW Standard Deviation 53.8 fL (35.1-43.9); Red Blood Count 3.69 Miln/mm3 (4.50-5.90); White Blood Count 7.9 Thou/mm3 (3.8-10.6)
[2024-11-21 10:01] LABS: B-Type Natriuretic Peptide 152 pg/mL (0-100)
[2024-11-21 10:05] LABS: Alanine Aminotransferase 12 U/L (10-49); Albumin, Serum 4.5 gm/dL (3.4-4.8); Albumin/Globulin Ratio 1.3 (1.2-2.2); Alkaline Phosphatase 64 U/L (46-116); Anion Gap 10 (7-16); Aspartate Amino Transferase 19 U/L (0-34); BUN/Creatinine Ratio 11 Ratio (12-20); Bilirubin,Total 0.6 mg/dL (0.3-1.2); Blood Urea Nitrogen 16 mg/dL (9-23); Calcium 11.6 mg/dL (8.3-10.6); Calcium (Corrected) 11.6 mg/dL (8.5-10.1); Carbon Dioxide 28.4 mMol/L (20.0-31.0); Chloride 100 mMol/L (98-107); Creatinine (Component) 1.4 mg/dL (0.6-1.3); Estimated Creatinine Clearance 37.3 mL/min (>60); Globulin 3.4 gm/dL (2.3-3.5); Glucose 156 mg/dL (74-106); Lipase 36 U/L (12-53); Osmolality,Calculated 279 (275-295); Potassium 3.8 mMol/L (3.4-5.1); Sodium 138 mMol/L (136-145); Total Protein 7.9 gm/dL (5.7-8.2); Troponin I 0.036 ng/mL (0.0-0.045); eGFR 50 See Note
[2024-11-21 10:34] LABS: Collection Type, Urine Catheter
[2024-11-21 11:06] LABS: Bilirubin,Urine Negative (Negative); Blood,Urine 1+ (Negative); Clarity,Urine Clear (Clear/Hazy); Color,Urine Lt-Yellow (Lt Yel-Yel); Culture Indicated,Urine Not Indicated; Glucose, Urine Negative (Negative); Hyaline Casts,Urine < 1 /hpf (0-1); Ketones,Urine 1+ (Negative); Leukocyte Esterase,Urine Negative (Negative); Nitrite,Urine Negative (Negative); PH,Urine 6.0 (5.0-7.0); Protein,Urine Trace (Neg - Trace); RBC,Urine 2 /hpf (0-3); Specific Gravity,Urine 1.018 (1.001-1.035); Squamous Epithelial Cell,Urine < 1 /hpf (0-5); Urobilinogen,Urine Negative mg/dL (0.0-1.0); WBC,Urine 3 /hpf (0-5)
--- NOTE | 2024-11-21 11:59 | PD.EDNV ---
Nausea/Vomit./Diarrhea-RME/HPI General Chief complaint: Nausea/Vomiting/Diarrhea Stated complaint: diarrhea x 1 month. decreased appetite Time Seen by Provider: 11/21/24 08:40 Arrival date/time: 11/21/24 07:54 Limitations: no limitations RME / HPI RME / HPI Narrative: Patient is an 79-year-old male with medical history notable for diabetes, Parkinson's disease, hypertension, urinary incontinence diaper dependent that is in the emergency department but in by his with concerns for more than 2 weeks of recurrent diarrhea and 1 day of emesis and feeling weak. Denies fevers chills palpitations however does endorse some chest pain. Has lower extremity swelling that getting worse. Denies drugs alcohol smoking dysuria melena bloody stools. No sick contacts no recent travel. Patient's states that they recently came to the emergency department for a similar presentation. Related Data Home Medications ?Medication ?Instructions ?Recorded ?Confirmed carbidopa 25 mg-levodopa 100 mg 1 tab PO TID 01/05/22 03/06/24 tablet lisinopril 20 mg tablet 20 mg PO QDAY 01/05/22 03/06/24 metformin 1,000 mg tablet 1,000 mg PO BID 01/05/22 03/06/24 sucralfate 1 gram tablet 1 g PO BID 01/05/22 03/06/24 tamsulosin 0.4 mg capsule 0.4 mg PO QDAY 01/05/22 03/06/24 trihexyphenidyl 2 mg tablet 2 mg PO TID 01/05/22 03/06/24 carbidopa ER 48.75 mg-levodopa 195 1 cap PO TID 03/05/24 03/06/24 mg capsule,extended release (Rytary) glipizide 10 mg tablet 10 mg PO BID 03/05/24 03/06/24 hydrochlorothiazide 12.5 mg tablet 12.5 mg PO QDAY 03/05/24 03/06/24 rasagiline 1 mg tablet 1 mg PO QDAY 03/05/24 03/06/24 Previous Rx's ?Medication ?Instructions ?Recorded pantoprazole 40 mg tablet,delayed 40 mg PO QDAY #14 tabs 11/11/23 release (Protonix) amoxicillin 875 mg-potassium 1 tab PO BID #14 tabs 05/15/24 clavulanate 125 mg tablet Allergies Allergy/AdvReac Type Severity Reaction Status Date / Time No Known Allergies Allergy Verified 11/21/24 07:54 Review of Systems Review of Systems Systems Reviewed: All systems reviewed, normal except as documented ED Exam General Limitations: Present no limitations General appearance: Present alert and in no apparent distress Head Head exam: Present atraumatic Eye Eye exam: Present normal appearance, PERRL and EOMI ENT ENT exam: Present normal exam, normal oropharynx and mucous membranes moist Neck Neck exam: Present normal inspection, full ROM and trachea midline Chest Chest inspection: Present normal inspection and symmetric chest wall rise Respiratory Respiratory exam: Present normal lung sounds bilaterally Cardiovascular Cardiovascular exam: Present regular rate, normal rhythm and normal heart sounds Abdominal Exam Abdominal exam: Present soft and normal bowel sounds Extremities Exam Extremities exam: Present normal inspection and full ROM Back Exam Back exam: Present normal inspection and full ROM Neurological Exam Neurological exam: Present alert and other (Conversation is limited and the patient's provides the history.) Psychiatric Psychiatric exam: Present normal affect and normal mood Skin Skin exam: Present warm, dry, intact and normal color Course Course Course Narrative: At approximently 15:00 PM patient developed worsening chest pain. Repeat EKG was obtained and revealed bigeminy with ST depression in leads V5 and V6. This is new from his prior EKG today. Quality Measures none Orders Category Date Time Status CT Screening NOW Care 11/21/24 08:41 Completed EKG (ED ONLY) *Do not use* NOW Care 11/21/24 08:42 Completed EKG (ED ONLY) *Do not use* NOW Care 11/21/24 15:06 Completed EKG (ED ONLY) *Do not use* NOW Care 11/21/24 16:[address] abdomen pelvis w con Stat Exams 11/21/24 08:40 Completed CXR [XR chest 1V] Stat Exams 11/21/24 08:42 Completed EKG (ED Only) Stat Exams 11/21/24 08:42 Draft EKG (ED Only) Stat Exams 11/21/24 15:06 Draft EKG (ED Only) Stat Exams 11/21/24 16:20 Draft BNP [B-Type Natriuretic Peptide] Stat Lab 11/21/24 09:03 Completed CBC Stat Lab 11/21/24 09:03 Completed CMP [Comprehensive Metabolic Panel] Stat Lab 11/21/24 09:03 Completed Clostridium Difficile PCR Stat Lab 11/21/24 Ordered Lipase Stat Lab 11/21/24 09:03 Completed Mag [Magnesium] Stat Lab 11/21/24 09:05 Completed Troponin I Stat Lab 11/21/24 09:03 Completed Troponin I Stat Lab 11/21/24 17:48 Completed UA, C/S IF [Urinalysis, C/S if Indicated] Stat Lab 11/21/24 10:02 Completed Acetaminophen Tab [Tylenol Tab] Med 11/21/24 08:40 Discontinued 650 mg PO X1 ONE Aspirin Chew Med 11/21/24 16:17 Discontinued 324 mg PO X1 ONE Magnesium Oxide [Mag-Ox 400] Med 11/21/24 13:13 Discontinued 400 mg PO X1 ONE Magnesium Sulfate 1 gm Ivpb [Magnesium Sulfate Ivpb] Med 11/21/24 13:13 Discontinued 1 gm in 100 ml IV X1 Morphine Inj Med 11/21/24 16:17 Discontinued 2 mg IVP X1 ONE Ondansetron Odt [Zofran Odt] Med 11/21/24 08:40 Discontinued 4 mg PO X1 ONE Vital Signs Vital signs: Vital Signs Temperature 98.8 F 11/21/24 08:26 Pulse Rate 75 11/21/24 08:26 Respiratory Rate 18 11/21/24 08:26 Blood Pressure 147/66 H 11/21/24 08:26 Pulse Oximetry (%) 97 11/21/24 08:26 Oxygen Delivery Method Room Air 11/21/24 08:26 Nausea/Vomiting/Diarrhea MDM Narrative MDM Narrative:: Patient is an 79-year-old male with medical history notable for diabetes, Parkinson's disease, hypertension, urinary incontinence diaper dependent that is in the emergency department but in by his with concerns for more than 2 weeks of recurrent diarrhea and 1 day of emesis and feeling weak. Denies fevers chills palpitations however does endorse some chest pain. Has lower extremity swelling that getting worse. Denies drugs alcohol smoking dysuria melena bloody stools. No sick contacts no recent travel. Patient's states that they recently came to the emergency department for a similar presentation. On exam, patient is nontoxic-appearing. Abdomen is soft and supple with no mass or rebound tenderness. Vital signs have remained stable throughout the ER course. Serial troponins and EKG were performed. There is 1 EKG that showed bigeminy, this resolved. Troponins remain negative afterwards. During the ER course, patient had no bowel movements during the time of my care. We did attempt to collect a stool sample without success. I do believe the patient be discharged for outpatient workup. Return precautions were discussed. Patient agrees to return at anytime for worsening or emergent changes. Patient data External records reviewed:: None Clinical information provided by:: patient Social determinants that could affect healthcare access:: mental health Patient has the following chronic illnesses:: Parkinsonian disease, hypertension How is presenting disease/condition affected by chronic disease/condition?: exacerbated by Evaluation data The following diagnostics were reviewed and interpreted by me:: lab results, radiology exam(s) and EKG tracing(s) Lab and/or radiology exams considered but not ordered:: n/a Interpretation Summary: Hypomagnesia was noted. Single EKG revealed bigeminy, workup was otherwise unremarkable. Medications / Prescriptions Medications / Prescriptions considered but not ordered:: n/a Medication administrations:: Medication Administration History Discontinued Medications Acetaminophen (Acetaminophen 325 Mg Tablet) 650 mg PO X1 ONE Stop: 11/21/24 08:41 Last Admin: 11/21/24 12:08 Dose: 650 mg Documented By: GM Aspirin (Aspirin 81 Mg Chew) 324 mg PO X1 ONE Stop: 11/21/24 16:18 Last Admin: 11/21/24 16:43 Dose: 324 mg Documented By: GM Magnesium Sulfate/Dextrose (Magnesium Sulfate Ivpb) 1 gm in 100 mls @ 100 mls/hr IV X1 ONE Stop: 11/21/24 14:12 Last Infusion: 11/21/24 14:56 Dose: Infused Documented By: Admin: 11/21/24 13:33 Dose: 100 mls/hr Documented By: GM Magnesium Oxide (Magnesium Oxide 400 Mg Tablet) 400 mg PO X1 ONE Stop: 11/21/24 13:14 Last Admin: 11/21/24 13:31 Dose: 400 mg Documented By: GM Morphine Sulfate (Morphine Sulf Inj 10 Mg/Ml Vial) 2 mg IVP X1 ONE Stop: 11/21/24 16:18 Last Admin: 11/21/24 16:45 Dose: 2 mg Documented By: GM Ondansetron HCl (Ondansetron Odt 4 Mg Tabrap) 4 mg PO X1 ONE; Protocol Stop: 11/21/24 08:41 Last Admin: 11/21/24 12:10 Dose: 4 mg Documented By: GM see above Consultations Consultation(s) initiated? (list below): No Diagnosis Nausea Differential Diagnosis: gastroenteritis, clostridium difficile infection, drug-induced nausea and vomiting and dehydration Most likely diagnosis given after review of the tests above:: Reported diarrhea, bigeminy, hypomagnesia Admission Indicated Admission indicated?: not indicated Admission Request Was there a request for admission?: No Disposition Plan Disposition Plan: Discharge Discharge Attestation Discharge Attestation: The patient and all family members were given an opportunity to ask questions and understood the discharge instructions. Discharge instructions specifically effects, indications for sooner follow up or return to the emergency department, and the expected course of current diagnosis. Patient condition: Stable Discharge Plan Plan Patient Disposition: HOME (Self Care) Patient condition on transfer: Stable Prescriptions/Referrals Prescriptions/Med Rec: No Action amoxicillin-pot clavulanate 875-125 mg tablet 1 tab PO BID Qty: 14 0RF metformin 1,000 mg tablet 1,000 mg PO BID tamsulosin 0.4 mg capsule 0.4 mg PO QDAY Patient Comments: take 1 capsule by mouth once daily trihexyphenidyl 2 mg tablet 2 mg PO TID Patient Comments: take 1 tablet by mouth three times a day lisinopril 20 mg tablet 20 mg PO QDAY Patient Comments: take 1 tablet by mouth once daily carbidopa-levodopa 25-100 mg tablet 1 tab PO TID Patient Comments: take 1 and 1/2 tablet by mouth four times a day sucralfate 1 gram tablet 1 g PO BID pantoprazole [Protonix] 40 mg tablet,delayed release (DR/EC) 40 mg PO QDAY Qty: 14 0RF glipizide 10 mg Tablet 10 mg PO BID rasagiline 1 mg Tablet 1 mg PO QDAY hydrochlorothiazide 12.5 mg Tablet 12.5 mg PO QDAY Rytary 48.75-195 mg Capsule, Extended Release 1 cap PO TID Rx Instructions: divide evenly over waking hours Referrals: No Primary/Family,Physician [Primary Care Provider] - In 1 week Problem List Clinical Impression: Gastroenteritis, Hypomagnesemia Patient/Caregiver Discharge Instructions Education Materials: ED Gastroenteritis, Noninfectious Additional Instructions: - Please follow-up with his primary doctor for close recheck. Patient would benefit from stool studies including stool culture and C. difficile studies. Patient did not provide a sample while being here in the emergency room. - Please return to the emergency room at anytime for any worsening or emergent changes. Print Language: Belizean Stand Alone Forms: Paula Award Info., Patient Portal Info Letter
[2024-11-21] MEDS: ACETAMINOPHEN 325 MG TABLET 650 MG PO (12:08)
[2024-11-21] MEDS: ONDANSETRON ODT 4 MG TABRAP PO (12:10)
[2024-11-21 12:33] LABS: Magnesium 1.2 mg/dL (1.6-2.6)
--- NOTE | 2024-11-21 13:26 | PC.NURSE ---
PT VOIDED SELF; PT GIVEN PERINEAL CARE WITH WARM BATH CLOTHS. LINEN CHANGED. PT'S PLACED IN NEW GOWN AND WARM BLANKETS GIVEN. PT ALSO PLACED IN NEW BRIEFS AND CHUCKS PLACED UNDERNEATH PT.
[2024-11-21] MEDS: MAGNESIUM OXIDE 400 MG TABLET PO (13:31)
--- NOTE | 2024-11-21 15:06 | EKG_ITS ---
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
--- NOTE | 2024-11-21 15:07 | PC.NURSE ---
PT C/O CHEST PAIN AT THIS TIME; CALEB MADE AWARE. VERBAL ORDERS RECEIVED TO REPEAT EKG. ORDERS IN PLACE.
--- NOTE | 2024-11-21 16:20 | EKG_ITS ---
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
[2024-11-21] MEDS: ASPIRIN 81 MG CHEW 324 MG PO (16:43)
[2024-11-21] MEDS: MORPHINE SULF INJ 10 MG/ML VIAL 2 MG IVP (16:45)
[2024-11-21 18:52] LABS: Troponin I 0.041 ng/mL (0.0-0.045)
== END 2024-11-21 21:49 | disposition home or self-care (01) ==
PROVIDERS: Physician Assistant Medical; Emergency Provider Emergency Medicine
DX: K52.9 Noninfective gastroenteritis and colitis, unspecified (principal); E83.42 Hypomagnesemia; E11.9 Type 2 diabetes mellitus without complications; G20.A1 Parkinson's disease without dyskinesia, without mention of fluctuations; I10 Essential (primary) hypertension
CPT/HCPCS: 36415; 71045; 74177; 80053; 81001; 83690; 83735; 83880; 84484; 85025; 87015; 87045; 87046; 87493; 87899; 93005; 96365; 96375; 99283; A4649; J2270; J3475; Q0162; Q9967; A9270

== ENCOUNTER 2025-01-03 18:52 | Emergency (ER) | payer MEDICARE, MEDICAID, SELFPAY ==
[2025-01-03 18:56] VITALS: BMI 20.3
[2025-01-03 19:06] VITALS: BP 162/89; PULSE 80; RESP 16; TEMP 36.7; O2SAT 99
--- NOTE | 2025-01-03 19:08 | XR_ITS ---
Examination: AP chest single view Technique one AP portable chest single view Date and time: January 03, 2025, 1910 hrs., Comparison November 21, 2024 Indications: Chest pain weakness today. Findings: Normal heart size No pneumonia or pulmonary edema. Moderate osteopenia, old fracture distal right clavicle Impression: No pneumonia or pulmonary edema
--- NOTE | 2025-01-03 19:08 | EKG_ITS ---
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
--- NOTE | 2025-01-03 19:08 | PD.EDADULT ---
ED General RME/HPI General Chief complaint: Chest Pain Stated complaint: SCANLON/L LEG NUMB/ FEELS LIKE HEART WILL STOP TODAY Time Seen by Provider: 01/03/25 19:07 Arrival date/time: 01/03/25 18:52 CC: Generalized weakness with chest pain HPI abrupt onset at 3 AM this morning. Weakness is now significantly improved, chest pain was only to sharp episodes at 3 AM. No prior history of similar events. Currently patient is awake alert oriented x 2. Patient denies fever chills chest pain shortness of breath or difficulty breathing at this time. Related Data Home Medications ?Medication ?Instructions ?Recorded ?Confirmed carbidopa 25 mg-levodopa 100 mg 1 tab PO TID 01/05/22 03/06/24 tablet lisinopril 20 mg tablet 20 mg PO QDAY 01/05/22 03/06/24 metformin 1,000 mg tablet 1,000 mg PO BID 01/05/22 03/06/24 sucralfate 1 gram tablet 1 g PO BID 01/05/22 03/06/24 tamsulosin 0.4 mg capsule 0.4 mg PO QDAY 01/05/22 03/06/24 trihexyphenidyl 2 mg tablet 2 mg PO TID 01/05/22 03/06/24 carbidopa ER 48.75 mg-levodopa 195 1 cap PO TID 03/05/24 03/06/24 mg capsule,extended release (Rytary) glipizide 10 mg tablet 10 mg PO BID 03/05/24 03/06/24 hydrochlorothiazide 12.5 mg tablet 12.5 mg PO QDAY 03/05/24 03/06/24 rasagiline 1 mg tablet 1 mg PO QDAY 03/05/24 03/06/24 Previous Rx's ?Medication ?Instructions ?Recorded pantoprazole 40 mg tablet,delayed 40 mg PO QDAY #14 tabs 11/11/23 release (Protonix) amoxicillin 875 mg-potassium 1 tab PO BID #14 tabs 05/15/24 clavulanate 125 mg tablet Allergies Allergy/AdvReac Type Severity Reaction Status Date / Time No Known Allergies Allergy Verified 01/03/25 18:59 Review of Systems Review of Systems Narrative Review of Systems: GEN: No fever, no chills, no weight loss EYES: No discharge, no visual changes, no pain HEENT: No ear pain, no congestion, no sore throat PULM: No shortness of breath, no cough, no congestion CV: + chest pain, no dyspnea on exertion, no palpitations GI: No nausea, no vomiting, no diarrhea, no pain, no constipation : No frequency, no urgency, no dysuria MUSC/SKEL: No joint pain, no back pain SKIN: No rash PSYCH: No hallucinations, no depression HEME/LYMPH: No easy bleeding or bruising tendencies NEURO: No weakness, no headache Past Medical History Past Medical History NEUROLOGIC: Positive Neurological Disorders and Parkinson's Disease; Negative Seizures or Migraine CARDIAC: Positive Cardiac Disorders, Peripheral Vascular Disease, Hypertension and Varicose Veins; Negative Congestive Heart Failure RESPIRATORY: Negative Chronic Obstructive Pulmonary Disease (COPD), Asthma, Pneumonia, Tuberculosis or Sleep Apnea GASTROINTESTINAL: Positive Gastrointestinal Disorders, Ulcer and Gastroesophageal Reflux Disease; Negative Hepatitis GENITOURINARY: Positive Genitourinary Disorders, Inguinal Hernia and Benign Prostatic Hyperplasia; Negative Renal Disease MUSCULOSKELETAL: Positive Musculoskeletal Disorders and Arthritis ENT: Positive Cataracts ENDOCRINE: Positive Endocrine Disorders and Diabetes Mellitus Type 2; Negative Diabetes Mellitus Type 1 HEMATOLOGIC: Negative Blood Disorders or Sickle Cell Disease OTHER HISTORY: Positive Hospitalization; Negative Autoimmune Disease, Shingles, Falls, Blood Transfusions, Blood Transfusion Reaction, Anesthesia Reactions, Chemotherapy, Radiation Therapy or Cancer Family History FAMILY HISTORY: Positive Family Cancer; Negative Family Psychiatric Problems, Family Respiratory Disorders, Family Cardiac Disorders, Family Gastrointestinal Problems, Family Surgery or Family Anesthesia Reaction Surgical History SURGICAL: Positive Vascular Surgery; Negative Cardiac Surgery Social History SMOKING STATUS: Never smoker SUBSTANCE USE: does not use ED Exam Narrative Physical exam: [General: Thin borderline emaciated deconditioned, but not in any acute distress Head normocephalic HEENT: Eyes pupils are PERRLA EOMs are intact mouth pink dry membranes pupils are PERRLA EOMs are intact all other subsystems of HEENT are within acceptable limits Neck is supple nontender no JVD no edema Chest equal chest rise nontender to palpation Respiratory: Clear to auscultation no wheezes crackles or rubs CV: Rate rhythm is regular no murmurs rubs or clicks Abdomen is flat, soft nontender positive bowel sounds all 4 quadrants Back: No CVA tenderness no spinous process tenderness from cervical spine thoracic and lumbar spine Skin: Intact no petechiae rash induration ulceration or crepitus Extremities: Wheelchair-bound, moving upper extremities with some effort. Neuro: Awake alert oriented x2, person and place Glascow coma 15 no focal deficits] cranial nerves II through XII are grossly intact Course Course Course Narrative: Review the laboratory which show the patient has no significant finding other than a stable anemia. The patient can be discharged home with a diagnosis of weakness. Patient and are in agreement with this plan. Quality Measures none Orders Category Date Time Status EKG (ED ONLY) *Do not use* NOW Care 01/03/25 19:[address] head/brain wo con Stat Exams 01/03/25 19:11 Completed EKG (ED Only) Stat Exams 01/03/25 19:08 Draft XR chest 1V Stat Exams 01/03/25 19:08 Completed B-Type Natriuretic Peptide Stat Lab 01/03/25 19:45 Completed CBC Stat Lab 01/03/25 19:45 Completed Comprehensive Metabolic Panel Stat Lab 01/03/25 19:45 Completed Drug Screen,Urine Stat Lab 01/03/25 20:23 Results LDH (Lactate Dehydrogenase) Stat Lab 01/03/25 19:45 Completed Magnesium Stat Lab 01/03/25 19:45 Completed Partial Thromboplastin Time Stat Lab 01/03/25 19:45 Completed Prothrombin Time with INR Stat Lab 01/03/25 19:45 Completed Troponin I Stat Lab 01/03/25 19:45 Completed Urinalysis, C/S if Indicated Stat Lab 01/03/25 20:23 Completed Vital Signs Vital signs: Vital Signs Temperature 98.1 F 01/03/25 19:06 Pulse Rate 80 01/03/25 19:06 Respiratory Rate 16 01/03/25 19:06 Blood Pressure 162/89 H 01/03/25 19:06 Pulse Oximetry (%) 99 01/03/25 19:06 Oxygen Delivery Method Room Air 01/03/25 19:06 Discharge Plan Plan Patient Disposition: HOME (Self Care) Patient condition on transfer: Stable Prescriptions/Referrals Prescriptions/Med Rec: No Action amoxicillin-pot clavulanate 875-125 mg tablet 1 tab PO BID Qty: 14 0RF metformin 1,000 mg tablet 1,000 mg PO BID tamsulosin 0.4 mg capsule 0.4 mg PO QDAY Patient Comments: take 1 capsule by mouth once daily trihexyphenidyl 2 mg tablet 2 mg PO TID Patient Comments: take 1 tablet by mouth three times a day lisinopril 20 mg tablet 20 mg PO QDAY Patient Comments: take 1 tablet by mouth once daily carbidopa-levodopa 25-100 mg tablet 1 tab PO TID Patient Comments: take 1 and 1/2 tablet by mouth four times a day sucralfate 1 gram tablet 1 g PO BID pantoprazole [Protonix] 40 mg tablet,delayed release (DR/EC) 40 mg PO QDAY Qty: 14 0RF glipizide 10 mg Tablet 10 mg PO BID rasagiline 1 mg Tablet 1 mg PO QDAY hydrochlorothiazide 12.5 mg Tablet 12.5 mg PO QDAY Rytary 48.75-195 mg Capsule, Extended Release 1 cap PO TID Rx Instructions: divide evenly over waking hours Referrals: Lee De La Cruz MD [Primary Care Provider, Family Practice] - In 1 week Problem List Clinical Impression: Weakness Patient/Caregiver Discharge Instructions Education Materials: ED Weakness (Uncertain Cause) Print Language: Norwegian Stand Alone Forms: Paula Award Info., Patient Portal Info Letter 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 Labs Labs: interpreted by me Lab(s) Interpretation(s): CBC shows no leukocytosis there is a stable chronic anemia with a hemoglobin of 9 4 and a hematocrit of 29.1. Coags within acceptable limits CMP shows a chloride of 109 glucose of 164 no other significant electrolyte imbalances or renal impairment Mag of 1.5. T. bili and transaminases are unremarkable. Troponin 0.030 BNP at 167 Urine is negative for leukocyte esterase or bacteria. Imaging Imaging interpretation: interpreted by me Imaging Interpretation(s): Head CT as interpreted by me read by radiology as negative for any acute finding.
--- NOTE | 2025-01-03 19:11 | XR_ITS ---
Examination: CT brain head without contrast. 2-D sagittal coronal reconstructions Date and time of exam:January 03, 2025, 1933 hrs., Comparison April 27, 2024 Indications: Generalized weakness beginning this morning CTDI: vol (mGy):50.4 DLP: (mGycm):1014 Technique: Multiple CT axial sections of the brain have been obtained, 5 mm slice thickness. Contrast has not been administered. 2-D sagittal, coronal reconstructions have been obtained Low dose protocols were performed. One or more of the following dose reduction techniques were used; automated exposure control, adjustment of the mA and/or KV according to patient size, use of iterative reconstruction technique. Findings: No significant ventricular enlargement. Intra-axial or extra-axial hemorrhage density is not seen. No mass effect or midline shift Basal cisterns are not remarkable. Fourth ventricle is midline. Cranial vault intact. Impression: Negative for acute hemorrhage, mass effect or midline shift Advise clinical correlation follow-up accordingly
[2025-01-03 19:57] LABS: Basophils # (Auto) 0.0 Thou/mm3 (0.0-0.2); Basophils % (Auto) 0 % (0-2.5); Eosinophils # (Auto) 0.2 Thou/mm3 (0.0-0.5); Eosinophils % (Auto) 3 % (0-10); Hematocrit 29.1 % (41.0-53.0); Hemoglobin 9.4 g/dL (13.5-16.0); Immature Granulocytes Auto 0.02 Thou/mm3 (0.00-0.00); Lymphocytes # (Auto) 1.3 Thou/mm3 (1.0-4.8); Lymphocytes % (Auto) 19 % (10-50); Mean Corpuscular HGB Conc 32.3 g/dl (31.0-37.0); Mean Corpuscular Hemoglobin 26.7 pg (25.0-35.0); Mean Corpuscular Volume 83 fL (80-100); Monocytes # (Auto) 0.5 Thou/mm3 (0.0-0.8); Monocytes % (Auto) 7 % (0-12); Neutrophils # (Auto) 4.7 Thou/mm3 (1.8-7.7); Neutrophils % (Auto) 69 % (37-80); Nucleated Red Blood Cell # 0.00 Thou/mm3 (0.00-0.00); Nucleated Red Blood Cell % 0 /100 WBC (0); Platelet Count 338 Thou/mm3 (140-440); RDW Standard Deviation 52.0 fL (35.1-43.9); Red Blood Count 3.52 Miln/mm3 (4.50-5.90); White Blood Count 6.8 Thou/mm3 (3.8-10.6)
[2025-01-03 20:10] LABS: INR 1.0 (0.9-1.3); Partial Thromboplastin Time 25.1 Seconds (22.0-36.0); Prothrombin Time 10.7 Seconds (9.0-12.2)
[2025-01-03 20:27] LABS: B-Type Natriuretic Peptide 167 pg/mL (0-100)
[2025-01-03 20:48] LABS: Collection Type, Urine Clean Catch
[2025-01-03 20:48] LABS: Alanine Aminotransferase < 7 U/L (10-49); Albumin, Serum 4.5 gm/dL (3.4-4.8); Albumin/Globulin Ratio 1.6 (1.2-2.2); Alkaline Phosphatase 59 U/L (46-116); Anion Gap 9 (7-16); Aspartate Amino Transferase 18 U/L (0-34); BUN/Creatinine Ratio 15 Ratio (12-20); Bilirubin,Total 0.2 mg/dL (0.3-1.2); Blood Urea Nitrogen 20 mg/dL (9-23); Calcium 9.5 mg/dL (8.3-10.6); Calcium (Corrected) 9.5 mg/dL (8.5-10.1); Carbon Dioxide 25.8 mMol/L (20.0-31.0); Chloride 109 mMol/L (98-107); Creatinine (Component) 1.3 mg/dL (0.6-1.3); Estimated Creatinine Clearance 42.9 mL/min (>60); Globulin 2.9 gm/dL (2.3-3.5); Glucose 164 mg/dL (74-106); LDH (Lactate Dehydrogenase) 221 U/L (120-246); Magnesium 1.5 mg/dL (1.6-2.6); Osmolality,Calculated 293 (275-295); Potassium 4.1 mMol/L (3.4-5.1); Sodium 144 mMol/L (136-145); Total Protein 7.4 gm/dL (5.7-8.2); Troponin I 0.030 ng/mL (0.0-0.045); eGFR 55 See Note
[2025-01-03 20:53] LABS: Bilirubin,Urine Negative (Negative); Blood,Urine Negative (Negative); Clarity,Urine Clear (Clear/Hazy); Color,Urine Yellow (Lt Yel-Yel); Culture Indicated,Urine Not Indicated; Glucose, Urine Trace (Negative); Ketones,Urine Negative (Negative); Leukocyte Esterase,Urine Negative (Negative); Nitrite,Urine Negative (Negative); PH,Urine 6.5 (5.0-7.0); Protein,Urine 1+ (Neg - Trace); RBC,Urine 5 /hpf (0-3); Specific Gravity,Urine 1.027 (1.001-1.035); Squamous Epithelial Cell,Urine < 1 /hpf (0-5); Urobilinogen,Urine Negative mg/dL (0.0-1.0); WBC,Urine 1 /hpf (0-5)
[2025-01-03 21:16] LABS: Amphetamine/Methamp Scrn,U Negative (Negative); Barbiturate Screen,Urine Negative (Negative); Benzodiazepines Screen,Urine Negative (Negative); Benzoylecgonine Screen, Ur Negative (Negative); Opiate Screen,Urine Negative (Negative); THC Screen,Urine Negative (Negative)
[2025-01-03 21:19] VITALS: BP 124/77; PULSE 77
[2025-01-03 21:30] LABS: Fentanyl Screen,Urine Negative (Negative)
== END 2025-01-03 21:22 | disposition home or self-care (01) ==
PROVIDERS: Registered Nurse General Practice; Emergency Provider Emergency Medicine; PCP Family Medicine
DX: R07.9 Chest pain, unspecified (principal); R53.1 Weakness; Z99.3 Dependence on wheelchair; D64.9 Anemia, unspecified; E11.9 Type 2 diabetes mellitus without complications; I10 Essential (primary) hypertension; I44.0 Atrioventricular block, first degree
CPT/HCPCS: 36415; 70450; 71045; 80053; 80307; 81001; 83615; 83735; 83880; 84484; 85025; 85610; 85730; 93005; 99284

== ENCOUNTER 2025-02-24 16:18 | Emergency (ER) | payer MEDICARE, MEDICAID, SELFPAY ==
[2025-02-24 16:19] VITALS: BMI 20.9
[2025-02-24 16:47] VITALS: BP 149/75; PULSE 95; RESP 16; TEMP 36.7; O2SAT 99
--- NOTE | 2025-02-24 16:52 | XR_ITS ---
Examination: CT abdomen and pelvis without contrast. Coronal 3-D reconstructions. Sagittal 2-D reconstructions. Date and time of exam: February 24, 2025, 1732 hours COMPARISON: November 21, 2024 INDICATIONS: Right flank pain beginning 1 week ago CTDI: vol (mGy): 5.7 DLP: (mGycm): 324 Technique: Axial images of the abdomen have been obtained, 3 mm slice thickness Intravenous contrast material has not been administered. Low dose protocols were performed. One or more of the following dose reduction techniques were used; automated exposure control, adjustment of the mA and/or KV according to patient size, use of iterative reconstruction technique. Findings: 4 mm pulmonary nodule in the right middle lobe Minimal right pleural disease Retrocardiac gastric hernia Liver is irregular in contour No definite gallstones Spleen is not enlarged No pancreatic or adrenal mass Minimal perinephric stranding No renal or ureteral calculi, no hydronephrosis Abundant stool throughout the colon Normal appendix Tiny fat-containing umbilical hernia No diverticulitis Mildly fluid distended small bowel loops in the pelvis No bladder mass or bladder calculi Mild prostatomegaly Severe osteopenia grade 1 anterolisthesis L4 on L5 Old right hip fracture IMPRESSION: 4 mm pulmonary nodule right middle lobe, recommend repeat PA chest follow-up Suspect primary hepatocellular disease Mild perinephric stranding, no renal or ureteral calculi, no hydronephrosis, consider urinary tract infection Normal appendix Abundant stool throughout the colon Mild small bowel ileus No bladder mass or bladder calculi
--- NOTE | 2025-02-24 16:53 | PD.EDRME ---
Rapid Medical Screening Exam RME Arrival date/time: 02/24/25 16:18 79-year-old male presents to the emergency department today for complaint of right flank pain Chief Complaint: Urogenital-Male Time Seen by Provider: 02/24/25 16:41 Vital signs: Vital Signs Temperature 98.1 F 02/24/25 16:47 Pulse Rate 95 02/24/25 16:47 Respiratory Rate 16 02/24/25 16:47 Blood Pressure 149/75 H 02/24/25 16:47 Pulse Oximetry (%) 99 02/24/25 16:47 Oxygen Delivery Method Room Air 02/24/25 16:47 Vital signs reviewed by provider: Yes Exam: On exam patient appears to be in pain Clinical Impression: Lab work imaging ordered
[2025-02-24 17:26] LABS: Lactate (Lactic Acid) 0.8 mMol/L (0.4-2.0)
[2025-02-24 17:27] LABS: Basophils # (Auto) 0.0 Thou/mm3 (0.0-0.2); Basophils % (Auto) 0 % (0-2.5); Eosinophils # (Auto) 0.1 Thou/mm3 (0.0-0.5); Eosinophils % (Auto) 1 % (0-10); Hematocrit 28.7 % (41.0-53.0); Hemoglobin 9.3 g/dL (13.5-16.0); Immature Granulocytes Auto 0.02 Thou/mm3 (0.00-0.00); Lymphocytes # (Auto) 1.1 Thou/mm3 (1.0-4.8); Lymphocytes % (Auto) 16 % (10-50); Mean Corpuscular HGB Conc 32.4 g/dl (31.0-37.0); Mean Corpuscular Hemoglobin 26.4 pg (25.0-35.0); Mean Corpuscular Volume 82 fL (80-100); Monocytes # (Auto) 0.7 Thou/mm3 (0.0-0.8); Monocytes % (Auto) 9 % (0-12); Neutrophils # (Auto) 5.2 Thou/mm3 (1.8-7.7); Neutrophils % (Auto) 73 % (37-80); Nucleated Red Blood Cell # 0.00 Thou/mm3 (0.00-0.00); Nucleated Red Blood Cell % 0 /100 WBC (0); Platelet Count 300 Thou/mm3 (140-440); RDW Standard Deviation 47.5 fL (35.1-43.9); Red Blood Count 3.52 Miln/mm3 (4.50-5.90); White Blood Count 7.1 Thou/mm3 (3.8-10.6)
[2025-02-24 17:52] LABS: Alanine Aminotransferase 23 U/L (10-49); Albumin, Serum 4.5 gm/dL (3.4-4.8); Albumin/Globulin Ratio 1.6 (1.2-2.2); Alkaline Phosphatase 74 U/L (46-116); Anion Gap 9 (7-16); Aspartate Amino Transferase 29 U/L (0-34); BUN/Creatinine Ratio 18 Ratio (12-20); Bilirubin,Total 0.3 mg/dL (0.3-1.2); Blood Urea Nitrogen 23 mg/dL (9-23); Calcium 9.8 mg/dL (8.3-10.6); Calcium (Corrected) 9.8 mg/dL (8.5-10.1); Carbon Dioxide 27.7 mMol/L (20.0-31.0); Chloride 102 mMol/L (98-107); Creatinine (Component) 1.3 mg/dL (0.6-1.3); Estimated Creatinine Clearance 44.3 mL/min (>60); Globulin 2.8 gm/dL (2.3-3.5); Glucose 211 mg/dL (74-106); Lipase 44 U/L (12-53); Osmolality,Calculated 287 (275-295); Potassium 4.0 mMol/L (3.4-5.1); Sodium 139 mMol/L (136-145); Total Protein 7.3 gm/dL (5.7-8.2); eGFR 55 See Note
[2025-02-24 20:44] LABS: Collection Type, Urine Clean Catch
[2025-02-24 20:55] LABS: Bilirubin,Urine Negative (Negative); Blood,Urine Trace (Negative); Clarity,Urine Clear (Clear/Hazy); Color,Urine Lt-Yellow (Lt Yel-Yel); Culture Indicated,Urine Not Indicated; Glucose, Urine 2+ (Negative); Ketones,Urine Negative (Negative); Leukocyte Esterase,Urine Negative (Negative); Nitrite,Urine Negative (Negative); PH,Urine 6.0 (5.0-7.0); Protein,Urine 1+ (Neg - Trace); RBC,Urine 5 /hpf (0-3); Specific Gravity,Urine 1.028 (1.001-1.035); Squamous Epithelial Cell,Urine < 1 /hpf (0-5); Urobilinogen,Urine Negative mg/dL (0.0-1.0); WBC,Urine 1 /hpf (0-5)
[2025-02-24] MEDS: MAGNESIUM CITRATE 300 ML BTL PO (21:25)
--- NOTE | 2025-02-24 21:50 | PD.EDMALE ---
ED Male Genitalurinary RME/HPI General Chief complaint: Urogenital-Male Stated complaint: R FLANK SINCE LAST NIGHT Time Seen by Provider: 02/24/25 16:41 Arrival date/time: 02/24/25 16:18 79-year-old male patient came in for evaluation regarding abdominal pain. Has been having abdominal pain on and off for the last few days. Denies any vomiting no fever no other complaint except for constipation for several days. Denies any dysuria. Denies any other complaints no medication was taken prior to ER visit. RME / HPI RME / HPI Narrative: 02/24/25 16:18 79-year-old male presents to the emergency department today for complaint of right flank pain Exam: On exam patient appears to be in pain Impression: Lab work imaging ordered Related Data Home Medications ?Medication ?Instructions ?Recorded ?Confirmed carbidopa 25 mg-levodopa 100 mg 1 tab PO TID 01/05/22 03/06/24 tablet lisinopril 20 mg tablet 20 mg PO QDAY 01/05/22 03/06/24 metformin 1,000 mg tablet 1,000 mg PO BID 01/05/22 03/06/24 sucralfate 1 gram tablet 1 g PO BID 01/05/22 03/06/24 tamsulosin 0.4 mg capsule 0.4 mg PO QDAY 01/05/22 03/06/24 trihexyphenidyl 2 mg tablet 2 mg PO TID 01/05/22 03/06/24 carbidopa ER 48.75 mg-levodopa 195 1 cap PO TID 03/05/24 03/06/24 mg capsule,extended release (Rytary) glipizide 10 mg tablet 10 mg PO BID 03/05/24 03/06/24 hydrochlorothiazide 12.5 mg tablet 12.5 mg PO QDAY 03/05/24 03/06/24 rasagiline 1 mg tablet 1 mg PO QDAY 03/05/24 03/06/24 Previous Rx's ?Medication ?Instructions ?Recorded pantoprazole 40 mg tablet,delayed 40 mg PO QDAY #14 tabs 11/11/23 release (Protonix) amoxicillin 875 mg-potassium 1 tab PO BID #14 tabs 05/15/24 clavulanate 125 mg tablet lactulose 10 gram/15 mL oral 15 ml PO TID PRN constipation #300 02/24/25 solution mL Allergies Allergy/AdvReac Type Severity Reaction Status Date / Time No Known Allergies Allergy Verified 02/24/25 21:53 Review of Systems Review of Systems Narrative Review of Systems: Review of system reviewed and within normal limits except mentioned in HPI ED Exam Narrative Physical exam: VITAL SIGNS: Reviewed. GENERAL APPEARANCE: Alert and interactive, follows commands, no acute distress, HEAD AND FACE: Non-traumatic. ENT: PERRL, pink conjunctivitis, eyelid no trauma, Mucous membrane moist. NECK: Supple, nontender, no nuchal rigidity. CHEST: No tenderness, no crepitus, no paradoxical movement, no retractions. LUNGS: Clear, well ventilated, symmetric, no rales, no wheezing, no ronchi, no stridor, good breath sounds bilaterally. HEART: Regular rate, regular rhythm, no murmur, no gallops. ABDOMEN: Soft, positive bowel sounds, nondistended, no guarding, nontender, no rebound, no masses, RECTAL: Deferred. GENITAL: Deferred. NEUROLOGICAL: Gross motor function intact sensory function intact, Appropriate for age. MUSCULOSKELETAL: low back nontender, full range of motion. EXTREMITIES: Nontender, full range of motion. SKIN: Color pink, dry, no rash, no lacerations, no abrasions, no contusions. LYMPHATICS: Deferred. Course Quality Measures none Orders Category Date Time Status CT abdomen pelvis wo con Stat Exams 02/24/25 16:52 Completed CBC Stat Lab 02/24/25 17:16 Completed Comprehensive Metabolic Panel Stat Lab 02/24/25 17:16 Completed Lactic Acid [Lactate (Lactic Acid)] Stat Lab 02/24/25 17:16 Completed Lipase Stat Lab 02/24/25 17:16 Completed UA, C/S IF [Urinalysis, C/S if Indicated] Stat Lab 02/24/25 20:37 Completed Magnesium Citrate Liqd [Citrate of Magnesia Liqd] Med 02/24/25 21:13 Discontinued 300 ml PO X1 ONE Vital Signs Vital signs: Vital Signs Temperature 98.1 F 02/24/25 16:47 Pulse Rate 95 02/24/25 16:47 Respiratory Rate 16 02/24/25 16:47 Blood Pressure 149/75 H 02/24/25 16:47 Pulse Oximetry (%) 99 02/24/25 16:47 Oxygen Delivery Method Room Air 02/24/25 16:47 Urogenital - Male MDM Narrative MDM Narrative:: 79-year-old male patient came in for evaluation regarding abdominal pain. Has been having abdominal pain on and off for the last few days. Denies any vomiting no fever no other complaint except for constipation for several days. Denies any dysuria. Denies any other complaints no medication was taken prior to ER visit. Patient's workup today all came back normal except for CT scan of the abdomen and pelvis that showed constipation otherwise unremarkable. Patient was given mag citrate in the emergency room. Patient stable for discharge home Patient data External records reviewed:: None Clinical information provided by:: none Social determinants that could affect healthcare access:: none Patient has the following chronic illnesses:: Diabetes mellitus, Parkinson, hypertension How is presenting disease/condition affected by chronic disease/condition?: exacerbated by Evaluation data The following diagnostics were reviewed and interpreted by me:: lab results and radiology exam(s) Lab and/or radiology exams considered but not ordered:: None Interpretation Summary: See above Medications / Prescriptions Medications or Prescriptions considered but not ordered:: None Medication administrations:: Medication Administration History Discontinued Medications Magnesium Citrate (Magnesium Citrate 300 Ml Btl) 300 ml PO X1 ONE Stop: 02/24/25 21:14 Last Admin: 02/24/25 21:25 Dose: 300 ml Documented By: FLORA Mag citrate Consultations Consultation(s) initiated? (list below): No Diagnosis Urogenital Male Differential Diagnosis: urinary tract infection, acute retention of urine and other (Constipation) Most likely diagnosis given after review of the tests above:: Constipation Admission Indicated Admission indicated?: not indicated Admission Request Was there a request for admission?: No Disposition Plan Disposition Plan: Discharge Discharge Attestation Discharge Attestation: The patient and all family members were given an opportunity to ask questions and understood the discharge instructions. Discharge instructions specifically effects, indications for sooner follow up or return to the emergency department, and the expected course of current diagnosis. Patient condition: Stable Discharge Plan Plan Patient Disposition: HOME (Self Care) Discharge Disposition comment: Stable Prescriptions/Referrals Prescriptions/Med Rec: New lactulose 10 gram/15 mL solution 15 ml PO TID PRN (Reason: constipation) Qty: 300 0RF No Action amoxicillin-pot clavulanate 875-125 mg tablet 1 tab PO BID Qty: 14 0RF metformin 1,000 mg tablet 1,000 mg PO BID tamsulosin 0.4 mg capsule 0.4 mg PO QDAY Patient Comments: take 1 capsule by mouth once daily trihexyphenidyl 2 mg tablet 2 mg PO TID Patient Comments: take 1 tablet by mouth three times a day lisinopril 20 mg tablet 20 mg PO QDAY Patient Comments: take 1 tablet by mouth once daily carbidopa-levodopa 25-100 mg tablet 1 tab PO TID Patient Comments: take 1 and 1/2 tablet by mouth four times a day sucralfate 1 gram tablet 1 g PO BID pantoprazole [Protonix] 40 mg tablet,delayed release (DR/EC) 40 mg PO QDAY Qty: 14 0RF glipizide 10 mg Tablet 10 mg PO BID rasagiline 1 mg Tablet 1 mg PO QDAY hydrochlorothiazide 12.5 mg Tablet 12.5 mg PO QDAY Rytary 48.75-195 mg Capsule, Extended Release 1 cap PO TID Rx Instructions: divide evenly over waking hours Referrals: Lee De La Cruz MD [Primary Care Provider, Family Practice] - In 1 week Problem List Clinical Impression: Constipation Patient/Caregiver Discharge Instructions Discharge Activity: activity as tolerated Education Materials: ED Constipation (Adult) Additional Instructions: Thank you for the opportunity for serving you today. You are stable for discharged . You are advised to: Follow-up with your PCP in 1 to 2 days Return to ED for worsening of symptoms Increase oral fluids Take medication as prescribed Increase fiber in the diet Print Language: Kiswahili Stand Alone Forms: Paula Award Info., Patient Portal Info Letter DAVID/MOUSTAPHA Supervising Physician DAVID/MOUSTAPHA Supervising Physician: MD Izzy
[2025-02-24 22:13] VITALS: RESP 16
== END 2025-02-24 22:13 | disposition home or self-care (01) ==
PROVIDERS: Nurse Practitioner Primary Care; Emergency Provider Emergency Medicine; PCP Family Medicine
DX: K59.00 Constipation, unspecified (principal)
CPT/HCPCS: 36415; 74176; 80053; 81001; 83605; 83690; 85025; 99283; A9270